=== PATIENT | male | born 1940 | race Caucasian/White ===

== ENCOUNTER 2018-12-06 18:22 | Observation (INO) ==
[2018-12-06 19:18] LABS: Albumin Level 3.9 gm/dL (3.4-5.0); Albumin/Globulin Ratio 1.2 (1.1-1.8); Anion Gap 11.1 mEq/L (5-15); Bilirubin,Total 0.9 mg/dL (0.2-1.0); Calcium 8.6 mg/dL (8.5-10.1); Globulin 3.3 gm/dl (1.3-3.2); Total Protein,Serum 7.2 gm/dL (6.4-8.2)
--- NOTE | 2018-12-06 19:18 | Emergency Department Note ---
ED Disposition Clinical Impression: Elevated troponin Disposition: Admitted as Observation Condition on Discharge: Fair Referrals: Lacy Brooks MD [Primary Care Provider] - Time of Disposition: 20:15 - Critical Care Critical Care Time: No Attestation: On 12/06/18, the high probability of a clinically significant, sudden or life threatening deterioration of the following system(s) required my full and direct attention, intervention and personal management. The time I documented below is in addition to time spent performing reported procedures but includes the follow ing listed in this critical care notation. Medical Decision Making - Medical Records Medical records reviewed: Yes: I reviewed the patient's medical records. - Efrain Inquiry Pt receiving controlled substance: No Efrain was queried for this patient: No Vital Signs: 12/06/18 18:31 Temperature 98 F Temperature Source Oral Pulse Rate [Right Apical] 70 Respiratory Rate 18 Blood Pressure [Right Arm] 199/102 H Blood Pressure Mean [Right Arm] 134 02 Sat by Pulse Oximetry 97 Oxygen Delivery Method Room Air - Lab Data Lab results reviewed: Yes: I reviewed the patient's lab results. Lab Results 12/06/18 18:35: WBC 4.8, RBC 4.05 L, Hgb 11.2 L, Hct 36.1 L, MCV 89.2, MCH 27.6, MCHC 31.0 L, RDW 16.3, Plt Count 137 L, MPV 12.0 H, Neut % (Auto) 71.3, Lymph % (Auto) 20.2, [place] % (Auto) 7.0, Eos % (Auto) 1.1, Baso % (Auto) 0.3, Neut # (Auto) 3.5, Lymph # (Auto) 1.0, [place] # (Auto) 0.3, Eos # (Auto) 0.1, Baso # (Auto) 0.0 12/06/18 18:35: Sodium 139, Potassium 4.1, Chloride 105, Carbon Dioxide 27, Anion Gap 11.1, BUN 28 H, Creatinine 1.59 H, Estimated Creat Clear 40, Estimated GFR 42 L, Est GFR ( Amer) 51 L, Glucose 145 H, Calcium 8.6, Total Bili del castillo 0.9, AST 40 H, ALT 51, Alkaline Phosphatase 82, Troponin I 0.94 H, Total Protein 7.2, Albumin 3.9, Globulin 3.3 H, Albumin/Globulin Ratio 1.2 12/06/18 18:35: Lactate 0.8 12/06/18 18:35: C-Reactive Protein 1.0 H 12/06/18 18:40: POC Glucose 134 H Result diagrams: 12/06/18 18:35 12/06/18 18:35 Orders (Tests/Meds): ED MEDICATIONS Discontinued Medications Generic Name Dose Route Start Last Admin Trade Name Freq PRN Reason Stop Dose Admin Methylprednisolone Sodium Succinate 125 mg 12/06/18 18:57 12/06/18 19:11 Solu-Medrol 125mg/2ml Vial IV 12/06/18 18:58 125 mg ONCE ONE Administration ORDERS Category Date Time Status CT head/brain wo con Stat Cat Scan 12/06/18 19:[address] lumbar spine wo con Stat Cat Scan 12/06/18 18:56 Ordered Chest XR 2 view (NOT portable) [XR chest 2V] Stat Exams 12/06/18 19:22 Taken Erythrocyte Sedimentation Rate Stat Lab 12/06/18 18:35 Received Urinalysis and Microscopic Stat Lab 12/06/18 18:36 Ordered Blood Culture Stat Micro 12/06/18 18:35 Received EKG Request [ECG Request by /Nse] Stat Y 12/06/18 19:20 Ordered - Physician Consults Physician Consulted: eileen Time: 20:13 Reason -: Admission, Cardiology Eval/Care Additional Consult: kelly Reason -: Admission General Adult HPI - General Chief complaint: Weakness Stated complaint: Weakness in legs Time Seen by Provider: 12/06/18 18:45 Mode of Arrival: Ambulatory Limitations: No Limitations Description of Symptoms (Recalled from ER Triage Doc. by RN): PT C/O WEAKNESS IN LEGS. 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 PT STATES THAT HE NEVER FELL BUT WOULD HAVE TO CROUCH DOWN SO HE WOULDNT FALL. PT STATES HE HASNT TAKEN ANY OF HIS MEDS TODAY BECAUSE HE FORGOT. 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 No chest pain, headache, or affected other extremities - Related Data Home Medications Medication Instructions Recorded Confirmed Linaclotide [Linzess] 72 mcg PO DAILY 10/11/18 12/06/18 Lisinopril [Lisinopril 2.5mg Tab] 5 mg PO DAILY 10/11/18 12/06/18 glipiZIDE [Glipizide] 5 mg PO DAILY 10/11/18 12/06/18 Allergies Allergy/AdvReac Type Severity Reaction Status Date / Time shellfish derived Allergy Severe UNKOWN Verified 10/16/18 09:28 [From SHELLFISH (FOOD/DRUG)] iodine Allergy Unknown Verified 10/16/18 09:28 [facility] History - Hepatitis A Screen Drug use history?: No High risk sexual behaviors?: No History of sexually transmitted infection?: No Currently employed?: No Childcare worker?: No Do you have indoor plumbing?: Yes Do you have electricity?: Yes Attestation statement:: This patient has been screened for Hepatitis A risk factors. I have reviewed the patient's past medical history: Yes Medical History: Reports:: Diabetes Mellitus Type 2, Hypertension Denies:: Diabetes Mellitus Type 1, Internal Pacemaker, Lung Disease, Seizures Other Medical History: Reports: Other. Denies: Blood Transfusion Reaction Other Surgeries: No: Pacemaker - Social History Smoking Status: Smoker, status unknown Alcohol Intake: never Alcohol Intake Frequency:: other Substance Use Type: other Occupational Status: other Family Hx:: Unable to obtain ROS Obtained: Yes All systems reviewed & no additional complaints - Constitutional Constitutional: Denies fever(s) - Eyes Eyes: Denies change in vision - Cardiovascular Cardiovascular: Denies chest pain, Denies chest pain at rest, Denies diaphoresis, Denies dyspnea - Respiratory Respiratory: No chest congestion, No cough - Gastrointestinal Gastrointestingal: Reports: system reviewed and no additional complaints, except as docu. Denies: abdominal pain, belching, diarrhea - Musculoskeletal Musculoskeletal: Denies joint pain, Denies joint stiffness, Denies joint swelling, Reports muscle weakness - Neurologic Neurologic: Denies dizziness, Reports focal weakness, Denies syncope, Reports weakness, Reports other (legs) - Hematologic/Lymphatic Henatologic/Lymphatic: Reports system reviewed and no additional complaints, except as docu, Denies easy bleeding, Denies easy bruising Physical Exam - General General appearance: alert, in no apparent distress - Head Head exam: atraumatic, normocephalic, normal inspection - Eye Eye exam: Present: normal appearance, PERRL, EOMI - ENT ENT exam: Present: normal exam, normal oropharynx, mucous membranes moist, TM's normal bilaterally, normal external ear exam - Neck Neck exam: Present: normal inspection, full ROM, trachea midline. Absent: meni ngismus, lymphadenopathy - Chest Chest inspection: Present: normal inspection, symmetric chest wall rise. Absent: tenderness - Respiratory Respiratory exam: Present: normal lung sounds bilaterally. Absent: respiratory distress - Cardiovascular Cardiovascular exam: Present: normal rhythm, irregular rhythm. Absent: JVD - Abdominal Exam Abdominal exam: Present: soft, normal bowel sounds. Absent: distention, tenderness, guarding - Extremities Exam Extremities exam: Present: normal inspection, full ROM, normal capillary refill. Absent: calf tenderness - Neurological Exam Neurological exam: Present: alert, oriented X3, normal gait - Psychiatric Psychiatric exam: Present: normal affect, normal mood - Skin Skin exam: Present: warm, dry, intact, normal color
[2018-12-06 19:30] LABS: Hematocrit 36.1 % (42.0-52.0); Hemoglobin 11.2 g/dL (14.1-18.0); Mean Corpuscular Volume 89.2 fl (80-94); Red Blood Count 4.05 M/mm3 (4.60-6.20); White Blood Count 4.8 K/mm3 (4.8-10.8)
[2018-12-06 19:31] LABS: Basophils % 0.3 % (0.1-2.0); Eosinophils % 1.1 % (0.1-12.0); Lymphocytes % 20.2 % (10-50); Monocytes # 0.3 K/mm3 (0.1-1.0); Neutrophils # 3.5 K/mm3 (1.8-7.8); Neutrophils % 71.3 % (37.0-80.0); Platelet Count 137 K/mm3 (142-424); Red Cell Distribution Width 16.3 % (11.5-17.5)
[2018-12-06 19:32] LABS: Eosinophils # 0.1 K/mm3 (0.0-0.4)
[2018-12-07 06:46] LABS: Eosinophils % 0.3 % (0.1-12.0); Hematocrit 35.3 % (42.0-52.0); Hemoglobin 11.2 g/dL (14.1-18.0); Lymphocytes # 0.5 K/mm3 (0.7-4.5); Lymphocytes % 10.9 % (10-50); Mean Corpuscular HGB Conc 31.8 g/dL (31.8-35.4); Mean Corpuscular Volume 88.2 fl (80-94); Mean Platelet Volume 11.7 fl (7.4-10.4); Monocytes # 0.1 K/mm3 (0.1-1.0); Monocytes % 1.1 % (1.7-9.3); Neutrophils # 3.8 K/mm3 (1.8-7.8); Neutrophils % 87.7 % (37.0-80.0); Platelet Count 155 K/mm3 (142-424); Red Cell Distribution Width 16.3 % (11.5-17.5); White Blood Count 4.4 K/mm3 (4.8-10.8)
[2018-12-07 07:25] LABS: Albumin Level 3.4 gm/dL (3.4-5.0); Albumin/Globulin Ratio 1.1 (1.1-1.8); Anion Gap 13.1 mEq/L (5-15); Calcium 8.4 mg/dL (8.5-10.1); Globulin 3.1 gm/dl (1.3-3.2); Total Protein,Serum 6.5 gm/dL (6.4-8.2)
--- NOTE | 2018-12-07 07:48 | Pharmacy Consult Notes ---
[facility] Pharmacy VTE Monitoring - Patient Demographics Admission date: 12/07/18 Report Date: 12/07/18 Time: 07:48 Allergies/Adverse Reactions: Patient Allergies shellfish derived [From SHELLFISH (FOOD/DRUG)] Allergy (Severe, Verified 10/16/18 09:28) UNKOWN iodine Allergy (Unknown, Verified 10/16/18 09:28) Height: 1.75 m Weight: 74.191 kg Patient Problems: Current Active Problems Elevated troponin (Acute) - VTE Risk Labs: VTE Related Lab Results Hgb 11.2 g/dL (14.1-18.0) L 12/07/18 06:31 Hct 35.3 % (42.0-52.0) L 12/07/18 06:31 Plt Count 155 K/mm3 (142-424) 12/07/18 06:31 BUN 28 mg/dL (7-18) H 12/07/18 06:31 Creatinine 1.42 mg/dL (0.70-1.30) H 12/07/18 06:31 Estimated Creat Clear 46 mL/min (50-200) 12/07/18 06:31 Was VTE Risk Assessment Performed: Yes VTE Score: 1 VTE Risk Level: Very Low Risk Clinical Trial Participant: No - Prophylaxis VTE Prophylaxis Ordered?: Yes Types of VTE Prophylaxis: TEDS Knee High
--- NOTE | 2018-12-07 08:18 | Consult Report ---
History of Present Illness Consult date: 12/07/18 Requesting physician: Lacy Brooks Chief complaint: near syncope, elevated troponin Additional Medical History:: 1. HTN 2. DM, Type 2, treated for years 3. A. fib with CVR, History of present illness: 78-year-old white male with history of hypertension and type 2 diabetes mellitus presented to the emergency department for evaluation of recurrent weakness. Patient denies chest pain, pressure or tightness relates 3 episodes of leg weakness to the point that he will fall to the ground without loss of consciousness. He states he is able to catch himself and within a couple of min utes is able to stand back up with no problems. 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 Work-up in the ER revealed elevated troponin and abnormal EKG showing atrial fibrillation with voltage criteria for LVH, inferior infarct and poor R wave progression anteriorly with ST segment abnormalities laterally suggestive of ischemia. This is unchanged from EKG from 2017. Patient's blood pressure was markedly elevated on admission which has improved with additional antihypertensive medication in the form of Norvasc and metoprolol. [facility] History Medical History: Reports:: Diabetes Mellitus Type 2, Hypertension Denies:: Cancer, Diabetes Mellitus Type 1, Internal Pacemaker, Lung Disease, MRSA, Seizures *Have you ever received a pneumonia vaccine?: No *Have you received a flu vaccine this season?: No Other Medical History: Reports: Other. Denies: Blood Transfusion Reaction Other Surgeries: Yes: Colonoscopy. No: Pacemaker Amputation: No - *Social History Educational Level: Attended Grade School Smoking Status: Smoker, status unknown Alcohol Intake: never Alcohol Intake Frequency:: other Substance Use Type: other *Occupational Status:: other *Travel in the last 8 weeks: None - Psychiatric History Expresses thoughts of harming self/others: None Suicide Plan Description: No Plan Family Hx:: Unable to obtain Meds Home Medications Medication Instructions Recorded Confirmed Type Linaclotide [Linzess] 72 mcg PO DAILY 10/11/18 12/06/18 History Lisinopril [Lisinopril 2.5mg Tab] 5 mg PO DAILY 10/11/18 12/06/18 History glipiZIDE [Glipizide] 5 mg PO DAILY 10/11/18 12/06/18 History Allergies Allergy/AdvReac Type Severity Reaction Status Date / Time shellfish derived Allergy Severe UNKOWN Verified 10/16/18 09:28 [From SHELLFISH (FOOD/DRUG)] iodine Allergy Unknown Verified 10/16/18 09:28 Review of Systems - *Cardiovascular Denies chest pain, Denies rapid, pounding, or irregular heartbeat - *Respiratory Denies cough, Denies shortness of breath, Denies shortness of breath with activity - *Gastrointestinal Reports constipation, Denies abdominal pain - *Genitourinary Denies blood in urine - *Musculoskeletal Denies joint pain, Denies back pain - *Neurologic Reports localized weakness, Reports weakness, Reports other (legs), Denies dizziness, Denies fainting Exam Vital signs and Labs for Last 24 Hours: Temp Pulse Resp BP Pulse Ox 98.9 F 67 17 169/90 H 96 12/07/18 04:00 12/07/18 04:00 12/07/18 04:00 12/07/18 04:00 12/07/18 04:00 Laboratory Results - last 24 hr 12/06/18 18:35: WBC 4.8, RBC 4.05 L, Hgb 11.2 L, Hct 36.1 L, MCV 89.2, MCH 27.6, MCHC 31.0 L, RDW 16.3, Plt Count 137 L, MPV 12.0 H, Neut % (Auto) 71.3, Lymph % (Auto) 20.2, [place] % (Auto) 7.0, Eos % (Auto) 1.1, Baso % (Auto) 0.3, Neut # (Auto) 3.5, Lymph # (Auto) 1.0, [place] # (Auto) 0.3, Eos # (Auto) 0.1, Baso # (Auto) 0.0 12/06/18 18:35: Sodium 139, Potassium 4.1, Chloride 105, Carbon Dioxide 27, Anion Gap 11.1, BUN 28 H, Creatinine 1.59 H, Estimated Creat Clear 40, Estimated GFR 42 L, Est GFR ( Amer) 51 L, Glucose 145 H, Calcium 8.6, Total Bilirubin 0.9, AST 40 H, ALT 51, Alkaline Phosphatase 82, Troponin I 0.94 H, Total Protein 7.2, Albumin 3.9, Globulin 3.3 H, Albumin/Globulin Ratio 1.2 12/06/18 18:35: Lactate 0.8 12/06/18 18:35: ESR 26 H 12/06/18 18:35: C-Reactive Protein 1.0 H 12/06/18 18:40: POC Glucose 134 H 12/06/18 22:09: POC Glucose 171 H 12/06/18 23:24: Troponin I 0.84 H 12/07/18 02:15: Troponin I 0.74 H 12/07/18 05:42: POC Glucose 193 H 12/07/18 06:31: WBC 4.4 L, RBC 4.00 L, Hgb 11.2 L, Hct 35.3 L, MCV 88.2, MCH 28.1, MCHC 31.8, RDW 16.3, Plt Count 155, MPV 11.7 H, Neut % (Auto) 87.7 H, Lymph % (Auto) 10.9, [place] % (Auto) 1.1 L, Eos % (Auto) 0.3, Baso % (Auto) 0.0 L, Neut # (Auto) 3.8, Lymph # (Auto) 0.5 L, [place] # (Auto) 0.1, Eos # (Auto) 0.0, Baso # (Auto) 0.0 12/07/18 06:31: Sodium 143, Potassium 4.1, Chloride 109 H, Carbon Dioxide 25, Anion Gap 13.1, BUN 28 H, Creatinine 1.42 H, Estimated Creat Clear 46, Estimated GFR 48 L, Est GFR ( Amer) 58 L, Glucose 197 H D, Calcium 8.4 L, Total Bilirubin 1.0, AST 32, ALT 46, Alkaline Phosphatase 75, Total Protein 6.5, Albumin 3.4 D, Globulin 3.1, Albumin/Globulin Ratio 1.1 I & O for Last 24 hours: Intake & Output 12/04/18 12/05/18 12/06/18 12/07/18 11:59 11:59 11:59 11:59 Intake Total 738 / 738 Output Total 200 / 200 Balance 538 / 538 Weight 163 lb 9 oz - *Routine HEENT Exam Head: Present: normocephalic Eye: Present: EOMI, PERRL ENT: Present: mucous membranes moist - *Routine Neck Exam Present: supple. Absent: JVD, carotid bruit - *Routine Respiratory Exam Present: CTA bilaterally. Absent: accessory muscle use, rales, rhonchi, wheezes - *Routine Cardiovascular Exam Present: irregularly irregular. Absent: murmur, gallop, rubs - *Routine Abdominal Exam Present: soft. Absent: tenderness, distended, guarding - *Routine Extremities Exam Absent: edema, calf tenderness - *Routine Neurological Exam Present: alert, oriented X3, moving all extremities Assessment and Plan (1) Elevated troponin Current visit: Yes Status: Acute Category: Medical Code(s): R74.8 - Abnormal levels of other serum enzymes (2) Abnormal EKG Current visit: Yes Status: Acute Category: Medical Code(s): R94.31 - Abnormal electrocardiogram [ECG] [EKG] (3) Hypertension Current visit: Yes Status: Acute Category: Medical Code(s): I10 - Essential (primary) hypertension (4) Diabetes mellitus type 2 in nonobese Current visit: Yes Status: Acute Category: Medical Code(s): E11.9 - Type 2 diabetes mellitus without complications (5) Atrial fibrillation Current visit: Yes Status: Acute Category: Medical Code(s): I48.91 - Unspecified atrial fibrillation - Assessment and plan all Dx Assessment and Plan for all problems:: 1. Near syncopal episode in a diabetic, hypertensive patient with abnormal EKG and elevated troponins with concern for non-ST elevation TN. Discussed recommendation for left heart catheterization with the patient. He would like to discuss it with Dr. Brooks first. In the interim we will obtain an echo cardiogram to evaluate left ventricular size and function. 2. Would recommend daily aspirin 81 mg daily 3. With atrial fibrillation patient's elevated chads score, chronic anticoagulation will be recommended as well. Would hold off on starting this until decision regarding cardiac catheterization is made. 4. Further recommendations to follow pending above results.
--- NOTE | 2018-12-07 09:02 | History & Physical Report ---
*Admission Date: 12/07/18 *Chief complaint: leg weakness *History of present illness: Mr. Field is a 78-year-old white male with history of hypertension and type 2 diabetes mellitus who presented to the emergency department for evaluation of recurrent weakness. Patient denies chest pain, pressure or tightness and relates 3 episodes of leg weakness to the point that he will fall to the ground without loss of consciousness. He states he is able to catch himself and within a couple of minutes is able to stand back up with no problems. 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 Work-up in the ER revealed an elevated troponin and abnormal EKG showing atrial fibrillation with voltage criteria for LVH, inferior infarct and poor R wave progression anteriorly with ST segment abnormalities laterally suggestive of ischemia. This is unchanged from EKG from 2017. Patient's blood pressure was markedly elevated on admission which has improved with additional antihypertensive medication in the form of Norvasc and metoprolol. (The above as per Nathaniel Cabrera) [facility] History I have reviewed the patient's past medical history: Yes Medical History: Reports:: Atrial Fibrillation, Diabetes Mellitus Type 2, Hypertension Denies:: Cancer, Diabetes Mellitus Type 1, Internal Pacemaker, Lung Disease, MRSA, Seizures *Have you ever received a pneumonia vaccine?: No *Have you received a flu vaccine this season?: No Other Medical History: Reports: Other (gout). Denies: Blood Transfusion Reaction Other Surgeries: Yes: Colonoscopy. No: Pacemaker Amputation: No - *Social History Educational Level: Attended Grade School Smoking Status: Smoker, status unknown Alcohol Intake: never Alcohol Intake Frequency:: other Substance Use Type: other *Occupational Status:: other *Travel in the last 8 weeks: None - Psychiatric History Expresses thoughts of harming self/others: None Suicide Plan Description: No Plan Family Hx:: Unable to obtain Review of Systems - Constitutional Reports weakness (legs), Denies chills, Denies fatigue - Eyes Denies blurry vision, Denies double vision - ENT Denies nasal congestion, Denies sore throat - *Cardiovascular Denies chest pain, Denies shortness of breath, Denies leg swelling - *Respiratory Denies cough, Denies shortness of breath - *Gastrointestinal Reports constipation, Denies abdominal pain, Denies loose stools, Denies nausea, Denies vomiting - *Genitourinary Denies difficulty urinating, Denies painful urination - *Musculoskeletal Denies joint pain - *Neurologic Reports localized weakness, Reports weakness, Reports other (legs), Denies dizziness, Denies fainting Meds Home Medications Medication Instructions Recorded Confirmed Type Linaclotide [Linzess] 72 mcg PO DAILY 10/11/18 12/06/18 History Lisinopril [Lisinopril 2.5mg Tab] 5 mg PO DAILY 10/11/18 12/06/18 History Ferrous Gluconate [Ferate] 240 mg PO TID 12/07/18 12/07/18 History Levothyroxine Sodium 50 mcg PO DAILY 12/07/18 12/07/18 History [Levothyroxine 50mcg (0.05mg) Tab] Linaclotide [Linzess] 72 mcg PO DAILY 12/07/18 12/07/18 History glyBURIDE [Diabeta 5mg tablet] 5 mg PO DAILY 12/07/18 12/07/18 History Allergies Allergy/AdvReac Type Severity Reaction Status Date / Time shellfish derived Allergy Severe UNKOWN Verified 10/16/18 09:28 [From SHELLFISH (FOOD/DRUG)] iodine Allergy Unknown Verified 10/16/18 09:28 Exam Vital signs and Labs for Last 24 Hours: Temp Pulse Resp BP Pulse Ox 98.1 F 64 18 145/94 H 95 12/07/18 08:00 12/07/18 08:00 12/07/18 08:00 12/07/18 08:00 12/07/18 08:00 Laboratory Results - last 24 hr 12/06/18 18:35: WBC 4.8, RBC 4.05 L, Hgb 11.2 L, Hct 36.1 L, MCV 89.2, MCH 27.6, MCHC 31.0 L, RDW 16.3, Plt Count 137 L, MPV 12.0 H, Neut % (Auto) 71.3, Lymph % (Auto) 20.2, [place] % (Auto) 7.0, Eos % (Auto) 1.1, Baso % (Auto) 0.3, Neut # (Auto) 3.5, Lymph # (Auto) 1.0, [place] # (Auto) 0.3, Eos # (Auto) 0.1, Baso # (Auto) 0.0 12/06/18 18:35: Sodium 139, Potassium 4.1, Chloride 105, Carbon Dioxide 27, Anion Gap 11.1, BUN 28 H, Creatinine 1.59 H, Estimated Creat Clear 40, Estimated GFR 42 L, Est GFR ( Amer) 51 L, Glucose 145 H, Calcium 8.6, Total Bilirubin 0.9, AST 40 H, ALT 51, Alkaline Phosphatase 82, Troponin I 0.94 H, Total Protein 7.2, Albumin 3.9, Globulin 3.3 H, Albumin/Globulin Ratio 1.2 12/06/18 18:35: Lactate 0.8 12/06/18 18:35: ESR 26 H 12/06/18 18:35: C-Reactive Protein 1.0 H 12/06/18 18:40: POC Glucose 134 H 12/06/18 22:09: POC Glucose 171 H 12/06/18 23:24: Troponin I 0.84 H 12/07/18 02:15: Troponin I 0.74 H 12/07/18 05:42: POC Glucose 193 H 12/07/18 06:31: WBC 4.4 L, RBC 4.00 L, Hgb 11.2 L, Hct 35.3 L, MCV 88.2, MCH 28.1, MCHC 31.8, RDW 16.3, Plt Count 155, MPV 11.7 H, Neut % (Auto) 87.7 H, L ymph % (Auto) 10.9, [place] % (Auto) 1.1 L, Eos % (Auto) 0.3, Baso % (Auto) 0.0 L, Neut # (Auto) 3.8, Lymph # (Auto) 0.5 L, [place] # (Auto) 0.1, Eos # (Auto) 0.0, Baso # (Auto) 0.0 12/07/18 06:31: Sodium 143, Potassium 4.1, Chloride 109 H, Carbon Dioxide 25, Anion Gap 13.1, BUN 28 H, Creatinine 1.42 H, Estimated Creat Clear 46, Estimated GFR 48 L, Est GFR ( Amer) 58 L, Glucose 197 H D, Calcium 8.4 L, Total Bilirubin 1.0, AST 32, ALT 46, Alkaline Phosphatase 75, Total Protein 6.5, Albumin 3.4 D, Globulin 3.1, Albumin/Globulin Ratio 1.1 I & O for Last 24 hours: Intake & Output 12/04/18 12/05/18 12/06/18 12/07/18 11:59 11:59 11:59 11:59 Intake Total 738 / 738 Output Total 200 / 200 Balance 538 / 538 Weight 163 lb 9 oz - Constitutional no acute distress - *Routine HEENT Exam Head: Present: normocephalic Eye: Present: EOMI, PERRL ENT: Present: mucous membranes moist - *Routine Neck Exam Present: supple. Absent: lymphadenopathy - *Routine Respiratory Exam Present: CTA bilaterally - *Routine Cardiovascular Exam Present: irregularly irregular - *Routine Abdominal Exam Present: soft, normoactive bowel sounds. Absent: tenderness - *Routine Extremities Exam Absent: cyanosis, clubbing, edema - *Routine Skin Exam Present: warm. Absent: rash - *Routine Neurological Exam Present: alert, oriented X3 H&P: Result - Impressions Head CT - nothing acute Lumbar Spine CT 1. No acute fracture. 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 L3-L4: Anterior bridging osteophyte. Concentric bulging disc along with facet and ligamentum hypertrophy with mild bilateral foraminal narrowing with borderline narrowing of the canal. 4. L4-L5: Concentric bulging disc along with moderate facet and ligamentum flavum hypertrophy with canal stenosis. There is a broad-based right paracentral annular protrusion with moderate right and mild left foraminal narrowing. 5. L5-S1: Concentric bulging disc with a small left paracentral disc protrusion along with moderate facet ligamentum flavum hypertrophy with mild bilateral foraminal narrowing CXR - CHF with interstitial edema Assessment and Plan (1) Elevated troponin Current visit: Yes Status: Acute Category: Medical Code(s): R74.8 - Abnormal levels of other serum enzymes (2) Abnormal EKG Current visit: Yes Status: Acute Category: Medical Code(s): R94.31 - Abnormal electrocardiogram [ECG] [EKG] (3) Hypertension Current visit: Yes Status: Chronic Category: Medical Code(s): I10 - Essential (primary) hypertension (4) Diabetes mellitus type 2 in nonobese Current visit: Yes Status: Chronic Category: Medical Code(s): E11.9 - Type 2 diabetes mellitus without complications (5) Atrial fibrillation Current visit: Yes Status: Chronic Category: Medical Code(s): I48.91 - Unspecified atrial fibrillation (6) Leg weakness Current visit: Yes Status: Acute Category: Medical Code(s): R29.898 - Other symptoms and signs involving the musculoskeletal system (7) Renal insufficiency Current visit: Yes Status: Acute Category: Medical Code(s): N28.9 - Disorder of kidney and ureter, unspecified - Assessment and plan all Dx Assessment and Plan for all problems:: We will get an FATUMA and acetylcholinesterase antibodies due to leg weakness. Cardiology has seen the patient and has ordered an echo.
[2018-12-07 10:05] LABS: Lymphocytes % 12 % (10-50); Neutrophils % 88 % (42-76); Total Cells Counted 100
[2018-12-07 10:27] LABS: RBC Morphology Normal
--- NOTE | 2018-12-07 10:32 | Cardiology Report ---
PROCEDURE: 2-D M-mode and color Doppler study INDICATIONS FOR THE TEST: Chest pain COPD Heart Murmur Tobacco Smoking Palpitations Fatigue Syncope Edema Hypertension+Diabetes Mellitus+ Rheumatic Fever SOB JARRETT Obesity Hyperlipidemia Family History HD Additional History Weakness, AFib PATIENT INFORMATION HEIGHT: 69 WEIGHT: 163 GENDER: Male B/P: 199/102 2-D/M-MODE INTERPRETATION: 2-D MEASUREMENTS OBSERVED VALUES IN CMS Right Ventricular Dimension (RVDd) 3.1 Interventricular Septum (Thickness)(IVsd) 1.4 Left Ventricular Internal Dimensions(LVIDd) 5.6 Left Ventricular Posterior Wall (Thickness)(LVPWd) 1.3 Aortic Root 4.0 Aortic Cusp Separation 2.9 Left Atrial Dimensions (LAD) 5.0 2D 1. Left atrium is moderately enlarged, left ventricle is normal size, there is mild concentric left ventricular hypertrophy, visually estimated ejection fraction 40-45%, left ventricle is globally hypokinetic. 2. The right atrium and right ventricle are mildly enlarged with normal contractility. 3. The aortic valve is thickened and calcified leaflet continue to display mobility. 4. The mitral and tricuspid valve leaflets are minimally thickened. 5. The pulmonic valve is poorly visualized. 6. No significant pericardial effusion noted. DOPPLER INTERROGATION: Doppler interrogation of the aortic, mitral and tricuspid valvular presence of moderate aortic, moderate mitral and tricuspid regurgitation, calculated right ventricular systolic pressure is 54 mmHg consistent with moderate pulmonary hypertension, diastolic parameters are inconclusive, inferior vena cava is mildly dilated without significant inspiratory collapse. CONCLUSION: 1. Biatrial enlargement, normal left ventricular size, mild concentric left ventricular hypertrophy, reduced left ventricular systolic function, visually estimated ejection fraction 40-45%, left ventricle is globally hypokinetic, diastolic parameters are inconclusive. 2. Mildly enlarged right ventricle with normal contractility. 3. Moderate mitral, aortic and tricuspid regurgitation, calculated right ventricular systolic pressure is 54 mmHg consistent with moderate pulmonary hypertension, inferior vena cava is mildly dilated without significant inspiratory collapse. 4. No significant pericardial effusion noted.
[2018-12-07 20:19] LABS: Microscopic, Urine URINE MICROSCOPIC (MICROSCOPIC)
[2018-12-07 20:26] LABS: Appearance,Urine CLEAR (Clear); Bilirubin,Urine Negative (Negative); Blood, Urine Negative (Negative); Color,Urine YELLOW (Yellow); Glucose,Urine (UA) Negative (Negative); Ketones,Urine Negative (Negative); Leukocyte Esterase,Urine Negative (Negative); Protein,Urine Negative (Negative); Urobilinogen,Urine 0.2 EU/dl (0.2)
[2018-12-07 20:38] LABS: Bacteria,Urine Trace /lpf
--- NOTE | 2018-12-08 08:11 | Progress Note ---
Subjective Date: 12/08/18 Time: 08:06 Principal diagnosis: weakness Interval history: 78-year-old white male at bedside eating breakfast in no acute distress. Patient denies any chest pain, pressure or tightness. No recurrent leg weakness overnight. Telemetry shows atrial fibrillation with intermittent bradycardia down into the 40 bpm range during hours of sleep. No prolonged pauses and no tacky arrhythmias noted. Brief discussion regarding results of echocardiogram was undertaken with the patient that he would prefer to discuss results and further treatment with Dr. Brooks. Exam Vital signs and Labs for Last 24 Hours: Temp Pulse Resp BP Pulse Ox 97.6 F 56 L 18 159/88 H 96 12/08/18 04:00 12/08/18 04:00 12/08/18 04:00 12/08/18 04:00 12/08/18 04:00 Laboratory Results - last 24 hr 12/07/18 06:31: Total Counted 100, Neutrophils % (Manual) 88 H, Lymphocytes % (Manual) 12, Platelet Estimate Normal, RBC Morphology Normal 12/07/18 11:06: POC Glucose 157 H 12/07/18 17:59: POC Glucose 212 H 12/07/18 20:00: Urine Color Yellow, Urine Appearance Clear, Urine pH 6.0, Ur Specific [place] 1.020, Urine Protein Negative, Urine Glucose (UA) Negative, Urine Ketones Negative, Urine Blood Negative, Urine Nitrate Negative, Urine Bilirubin Negative, Urine Urobilinogen 0.2, Ur Leukocyte Esterase Negative, Urine WBC 3-5, Ur Squamous Epith Cells 3-5, Urine Bacteria Trace, Hyaline Casts 3-5 12/07/18 21:27: POC Glucose 155 H 12/08/18 06:24: POC Glucose 122 H I & O for Last 24 hours: Intake & Output 12/05/18 12/06/18 12/07/18 12/08/18 11:59 11:59 11:59 11:59 Intake Total 738 / 738 676 / 676 Output Total 450 / 450 750 / 750 Balance 288 / 288 -74 / -74 Weight 163 lb 9 oz 162 lb 11.218 oz - *Routine HEENT Exam Head: Present: normocephalic Eye: Present: EOMI, PERRL ENT: Present: mucous membranes moist - *Routine Respiratory Exam Present: CTA bilaterally. Absent: accessory muscle use, rales, rhonchi, wheezes - *Routine Cardiovascular Exam Present: irregularly irregular. Absent: murmur, gallop, rubs - *Routine Extremities Exam Absent: edema, calf tenderness - *Routine Neurological Exam Present: alert, oriented X3, moving all extremities Progress Note: A&P (1) Elevated troponin Status: Acute Current Visit: Yes (2) Abnormal EKG Status: Acute Current Visit: Yes (3) Hypertension Status: Chronic Current Visit: Yes (4) Diabetes mellitus type 2 in nonobese Status: Chronic Current Visit: Yes (5) Atrial fibrillation Status: Chronic Current Visit: Yes (6) Cardiomyopathy Status: Acute Current Visit: Yes Assessment and Plan for All Diagnoses:: 1. Elevated troponins with mild cardiomyopathy and abnormal EKG. Patient denies any chest pain, pressure or tightness. Discussed recommendation for cardiac catheterization with patient who wishes to discuss with Dr. Brooks before proceeding with any further evaluation. Would recommend medication changes including discontinuation of Norvasc due to the patient's cardiomyopathy and increasing his GABBY inhibitor with close monitoring of his renal function. Patient would be unable to tolerate beta-josemanuel therapy at this time due to intermittent marked bradycardia. 2. With mild CHF noted on chest x-ray, evidence of pulmonary HTN, mitral regurgitation on echo and mild cough, would recommend intermittent diuretic therapy in the form of low-dose Lasix. 3. Chronic atrial fibrillation on anticoagulation therapy. Currently rate controlled with intermittent bradycardia noted on telemetry. Patient will likely need pacemaker in the future, but not currently indicated clinically. 4. Recommendations as noted above, will be available as needed for further evaluation.
--- NOTE | 2018-12-08 08:14 | Progress Note ---
Internal Medicine - PN: Subj *Date: 12/08/18 *Time: 09:02 Interval history: Patient states he is feeling well this morning. He denies any chest pain or shortness of breath. He denies any leg weakness. He states he did rest well last night. Exam Vital signs and Labs for Last 24 Hours: Temp Pulse Resp BP Pulse Ox 97.6 F 56 L 18 159/88 H 96 12/08/18 04:00 12/08/18 04:00 12/08/18 04:00 12/08/18 04:00 12/08/18 04:00 Laboratory Results - last 24 hr 12/07/18 06:31: Total Counted 100, Neutrophils % (Manual) 88 H, Lymphocytes % (Manual) 12, Platelet Estimate Normal, RBC Morphology Normal 12/07/18 11:06: POC Glucose 157 H 12/07/18 17:59: POC Glucose 212 H 12/07/18 20:00: Urine Color Yellow, Urine Appearance Clear, Urine pH 6.0, Ur Specific [place] 1.020, Urine Protein Negative, Urine Glucose (UA) Negative, Urine Ketones Negative, Urine Blood Negative, Urine Nitrate Negative, Urine Bilirubin Negative, Urine Urobilinogen 0.2, Ur Leukocyte Esterase Negative, Urine WBC 3-5, Ur Squamous Epith Cells 3-5, Urine Bacteria Trace, Hyaline Casts 3-5 12/07/18 21:27: POC Glucose 155 H 12/08/18 06:24: POC Glucose 122 H I & O for Last 24 hours: Intake & Output 12/05/18 12/06/18 12/07/18 12/08/18 11:59 11:59 11:59 11:59 Intake Total 738 / 738 676 / 676 Output Total 450 / 450 750 / 750 Balance 288 / 288 -74 / -74 Weight 163 lb 9 oz 162 lb 11.218 oz - Constitutional no acute distress - *Routine Respiratory Exam Present: CTA bilaterally - *Routine Cardiovascular Exam Present: irregularly irregular - *Routine Abdominal Exam Present: soft, normoactive bowel sounds. Absent: tenderness - *Routine Extremities Exam Absent: cyanosis, clubbing, edema - *Routine Neurological Exam Present: alert, oriented X3 Assessment and Plan (1) Elevated troponin Current visit: Yes Status: Acute Category: Medical Code(s): R74.8 - Abnormal levels of other serum enzymes (2) Abnormal EKG Current visit: Yes Status: Acute Category: Medical Code(s): R94.31 - Abnormal electrocardiogram [ECG] [EKG] (3) Hypertension Current visit: Yes Status: Chronic Category: Medical Code(s): I10 - Essential (primary) hypertension (4) Diabetes mellitus type 2 in nonobese Current visit: Yes Status: Chronic Category: Medical Code(s): E11.9 - Type 2 diabetes mellitus without complications (5) Atrial fibrillation Current visit: Yes Status: Chronic Category: Medical Code(s): I48.91 - Unspecified atrial fibrillation (6) Cardiomyopathy Current visit: Yes Status: Acute Category: Medical Code(s): I42.9 - Cardiomyopathy, unspecified (7) Leg weakness Current visit: Yes Status: Acute Category: Medical Code(s): R29.898 - Other symptoms and signs involving the musculoskeletal system (8) Spinal stenosis of lumbar region Current visit: Yes Status: Chronic Category: Medical Code(s): M48.061 - Spinal stenosis, lumbar region without neurogenic claudication - Assessment and plan all Dx Assessment and Plan for all problems:: Cardiology still recommend a heart cath. Will discuss with Dr. mendoza today.
--- NOTE | 2018-12-08 15:48 | Progress Note ---
Internal Medicine - PN: Subj *Date: 12/08/18 *Time: 15:43 Interval history: Cardiac catheterization revealed extensive CAD. Received one stent to the LAD. EF was 30-35%. Dr. Swann plans repeat cath for additional stents next week. Renal insufficiency precluded a longer intervention today. Dr. Swann is also recommending a life vest. Exam Vital signs and Labs for Last 24 Hours: Temp Pulse Resp BP Pulse Ox 97.6 F 61 20 179/93 H 99 12/08/18 11:38 12/08/18 14:10 12/08/18 14:10 12/08/18 14:10 12/08/18 14:10 Laboratory Results - last 24 hr 12/07/18 17:59: POC Glucose 212 H 12/07/18 20:00: Urine Color Yellow, Urine Appearance Clear, Urine pH 6.0, Ur Specific [place] 1.020, Urine Protein Negative, Urine Glucose (UA) Negative, Urine Ketones Negative, Urine Blood Negative, Urine Nitrate Negative, Urine Bilirubin Negative, Urine Urobilinogen 0.2, Ur Leukocyte Esterase Negative, Urine WBC 3-5, Ur Squamous Epith Cells 3-5, Urine Bacteria Trace, Hyaline Casts 3-5 12/07/18 21:27: POC Glucose 155 H 12/08/18 06:24: POC Glucose 122 H 12/08/18 13:12: Activated Clotting Time > 400 H* I & O for Last 24 hours: Intake & Output 12/06/18 12/07/18 12/08/18 12/09/18 11:59 11:59 11:59 11:59 Intake Total 738 / 738 676 / 676 Output Total 450 / 450 1250 / 1250 Balance 288 / 288 -574 / -574 Weight 163 lb 9 oz 162 lb 11.218 oz Assessment and Plan (1) Elevated troponin Current visit: Yes Status: Acute Category: Medical Code(s): R74.8 - Abnormal levels of other serum enzymes (2) Cardiomyopathy Current visit: Yes Status: Acute Category: Medical Code(s): I42.9 - Cardiomyopathy, unspecified (3) Abnormal EKG Current visit: Yes Status: Acute Category: Medical Code(s): R94.31 - Abnormal electrocardiogram [ECG] [EKG] (4) Leg weakness Current visit: Yes Status: Acute Category: Medical Code(s): R29.898 - Other symptoms and signs involving the musculoskeletal system (5) Hypertension Current visit: Yes Status: Chronic Category: Medical Code(s): I10 - Essential (primary) hypertension (6) Diabetes mellitus type 2 in nonobese Current visit: Yes Status: Chronic Category: Medical Code(s): E11.9 - Type 2 diabetes mellitus without complications (7) Atrial fibrillation Current visit: Yes Status: Chronic Category: Medical Code(s): I48.91 - Unspecified atrial fibrillation (8) Spinal stenosis of lumbar region Current visit: Yes Status: Chronic Category: Medical Code(s): M48.061 - Spinal stenosis, lumbar region without neurogenic claudication - Assessment and plan all Dx Assessment and Plan for all problems:: Likely will be hospitalized through the weekend with possible recath on Tuesday.
[2018-12-09 06:30] LABS: Eosinophils % 0.1 % (0.1-12.0); Lymphocytes # 0.4 K/mm3 (0.7-4.5); Mean Corpuscular HGB Conc 32.4 g/dL (31.8-35.4); Mean Corpuscular Volume 88.6 fl (80-94); Monocytes # 0.2 K/mm3 (0.1-1.0); Monocytes % 3.4 % (1.7-9.3); Neutrophils # 5.6 K/mm3 (1.8-7.8); Neutrophils % 89.5 % (37.0-80.0); Platelet Count 163 K/mm3 (142-424); Red Blood Count 4.17 M/mm3 (4.60-6.20); Red Cell Distribution Width 16.8 % (11.5-17.5); White Blood Count 6.2 K/mm3 (4.8-10.8)
[2018-12-09 06:50] LABS: Anion Gap 14.4 mEq/L (5-15); Calcium 8.1 mg/dL (8.5-10.1)
[2018-12-09 08:36] LABS: Lymphocytes % 6 % (10-50); Monocytes % 2 % (2-9); Neutrophils % 92 % (42-76); RBC Morphology Normal; Total Cells Counted 100
--- NOTE | 2018-12-09 14:45 | Progress Note ---
Internal Medicine - PN: Subj *Date: 12/09/18 *Time: 14:42 Interval history: So a single stent was placed in the LAD yesterday. Dr. Swann was concerned about contrast affecting his kidney function so the procedure was not prolonged. Dr. Swann plans additional cardiac catheterization and additional stenting. I would like to just keep him through the weekend in anticipation of that and for stabilizing him. His blood pressure has been running high but Entresto was started last night and he has received a dose this morning. If his blood pressure continues to run high I would favor moving to increase that dose. He actually looks generally better today. He is reluctant to wear a LifeVest. Exam Vital signs and Labs for Last 24 Hours: Temp Pulse Resp BP Pulse Ox 97.6 F 58 L 18 151/82 H 100 12/09/18 08:00 12/09/18 12:00 12/09/18 12:00 12/09/18 12:00 12/09/18 12:00 Laboratory Results - last 24 hr 12/08/18 13:12: Activated Clotting Time > 400 H* 12/08/18 18:00: POC Glucose 175 H 12/08/18 20:06: POC Glucose 271 H 12/09/18 05:45: WBC 6.2 D, RBC 4.17 L, Hgb 12.0 L, Hct 37.0 L, MCV 88.6, MCH 28.8, MCHC 32.4, RDW 16.8, Plt Count 163, MPV 11.0 H, Neut % (Auto) 89.5 H, Lymph % (Auto) 7.0 L, [place] % (Auto) 3.4, Eos % (Auto) 0.1, Baso % (Auto) 0.0 L, Neut # (Auto) 5.6, Lymph # (Auto) 0.4 L, [place] # (Auto) 0.2, Eos # (Auto) 0.0, Baso # (Auto) 0.0, Total Counted 100, Neutrophils % (Manual) 92 H, Lymphocytes % (Manual) 6 L, Monocytes % (Manual) 2, Platelet Estimate Normal, RBC Morphology Normal 12/09/18 05:45: Sodium 143, Potassium 3.4 L, Chloride 109 H, Carbon Dioxide 23, Anion Gap 14.4, BUN 34 H, Creatinine 1.47 H, Estimated Creat Clear 45, Estimated GFR 46 L, Est GFR ( Amer) 56 L, Glucose 219 H, Calcium 8.1 L 12/09/18 11:20: POC Glucose 238 H I & O for Last 24 hours: Intake & Output 12/07/18 12/08/18 12/09/18 12/10/18 11:59 11:59 11:59 11:59 Intake Total 738 / 738 676 / 676 1777 / 1777 360 / 360 Output Total 450 / 450 1250 / 1250 1000 / 1000 Balance 288 / 288 -574 / -574 777 / 777 360 / 360 Weight 163 lb 9 oz 162 lb 11.218 oz 165 lb 5.547 oz Microbiology Reports for the Last 24 Hours: Microbiology 12/06/18 18:35 Blood Blood Culture - Preliminary NO GROWTH AFTER 48 HOURS 12/06/18 18:35 Blood Blood Culture - Preliminary NO GROWTH AFTER 48 HOURS - Constitutional no acute distress - *Routine HEENT Exam Head: Present: normocephalic Eye: Present: PERRL ENT: Present: mucous membranes moist - *Routine Respiratory Exam Present: CTA bilaterally - *Routine Cardiovascular Exam Present: irregular rhythm (Controlled rate of about 60.) - *Routine Abdominal Exam Present: soft. Absent: tenderness - *Routine Extremities Exam Absent: edema Assessment and Plan (1) Elevated troponin Current visit: Yes Status: Acute Category: Medical Code(s): R74.8 - Abn ormal levels of other serum enzymes (2) Cardiomyopathy Current visit: Yes Status: Acute Category: Medical Code(s): I42.9 - Cardiomyopathy, unspecified (3) Abnormal EKG Current visit: Yes Status: Acute Category: Medical Code(s): R94.31 - Abnormal electrocardiogram [ECG] [EKG] (4) Leg weakness Current visit: Yes Status: Acute Category: Medical Code(s): R29.898 - Other symptoms and signs involving the musculoskeletal system (5) Coronary artery disease Current visit: Yes Status: Acute Category: Medical Code(s): I25.10 - Atherosclerotic heart disease of [place] coronary artery without angina pectoris (6) Hypertension Current visit: Yes Status: Chronic Category: Medical Code(s): I10 - Essential (primary) hypertension (7) Diabetes mellitus type 2 in nonobese Current visit: Yes Status: Chronic Category: Medical Code(s): E11.9 - Type 2 diabetes mellitus without complications (8) Atrial fibrillation Current visit: Yes Status: Chronic Category: Medical Code(s): I48.91 - Unspecified atrial fibrillation (9) Spinal stenosis of lumbar region Current visit: Yes Status: Chronic Category: Medical Code(s): M48.061 - Spinal stenosis, lumbar region without neurogenic claudication - Assessment and plan all Dx Assessment and Plan for all problems:: Continue present regimen. Follow blood pressures. Adjust medications accordingly. Anticipate additional cardiac cath Tuesday.
[2018-12-10 06:19] LABS: Basophils % 0.1 % (0.1-2.0); Eosinophils # 0.1 K/mm3 (0.0-0.4); Eosinophils % 0.7 % (0.1-12.0); Hematocrit 39.9 % (42.0-52.0); Hemoglobin 12.5 g/dL (14.1-18.0); Lymphocytes # 1.2 K/mm3 (0.7-4.5); Lymphocytes % 13.3 % (10-50); Mean Corpuscular HGB Conc 31.4 g/dL (31.8-35.4); Mean Platelet Volume 10.8 fl (7.4-10.4); Monocytes # 0.6 K/mm3 (0.1-1.0); Neutrophils # 7.3 K/mm3 (1.8-7.8); Neutrophils % 79.8 % (37.0-80.0); Platelet Count 179 K/mm3 (142-424); Red Blood Count 4.53 M/mm3 (4.60-6.20); Red Cell Distribution Width 16.9 % (11.5-17.5); White Blood Count 9.1 K/mm3 (4.8-10.8)
[2018-12-10 06:52] LABS: Anion Gap 12.1 mEq/L (5-15); Calcium 8.2 mg/dL (8.5-10.1)
--- NOTE | 2018-12-10 13:04 | Progress Note ---
Internal Medicine - PN: Subj *Date: 12/10/18 *Time: 13:01 Interval history: He is doing okay. He is up walking the halls with assistance. His main complaint is his bowels. His gave him a suppository last night and he had some bowel movement. He remains in atrial fib. Cardiac cath is planned by Dr. Swann tomorrow morning. Exam Vital signs and Labs for Last 24 Hours: Temp Pulse Resp BP Pulse Ox 98.1 F 57 L 17 167/89 H 100 12/10/18 08:00 12/10/18 12:00 12/10/18 12:00 12/10/18 12:00 12/10/18 12:00 Laboratory Results - last 24 hr 12/09/18 06:39: POC Glucose 188 H 12/09/18 16:57: POC Glucose 111 H 12/09/18 21:40: POC Glucose 147 H 12/10/18 05:45: WBC 9.1 D, RBC 4.53 L, Hgb 12.5 L, Hct 39.9 L, MCV 88.0, MCH 27.6, MCHC 31.4 L, RDW 16.9, Plt Count 179, MPV 10.8 H, Neut % (Auto) 79.8, Lymph % (Auto) 13.3, [place] % (Auto) 6.0, Eos % (Auto) 0.7, Baso % (Auto) 0.1, Neut # (Auto) 7.3, Lymph # (Auto) 1.2, [place] # (Auto) 0.6, Eos # (Auto) 0.1, Baso # (Auto) 0.0 12/10/18 05:45: Sodium 144, Potassium 3.1 L, Chloride 109 H, Carbon Dioxide 26, Anion Gap 12.1, BUN 30 H, Creatinine 1.32 H, Estimated Creat Clear 47, Estimated GFR 53 L, Est GFR ( Amer) 64, Glucose 107 H D, Calcium 8.2 L 12/10/18 06:17: POC Glucose 106 12/10/18 11:44: POC Glucose 103 Laboratory Tests 12/10/18 05:45 Sodium 144 Potassium 3.1 L Chloride 109 H BUN 30 H Creatinine 1.32 H I & O for Last 24 hours: Intake & Output 12/08/18 12/09/18 12/10/1812/11/19 11:59 11:59 11:59 11:59 Intake Total 676 / 676 1777 / 1777 3550 / 3550 480 / 480 Output Total 1250 / 1250 1000 / 1000 2175 / 2175 Balance -574 / -574 777 / 777 1375 / 1375 480 / 480 Weight 162 lb 11.218 oz 165 lb 5.547 oz 156 lb 8.451 oz - Constitutional no acute distress - *Routine HEENT Exam Head: Present: normocephalic (His color is better.) ENT: Present: mucous membranes moist - *Routine Respiratory Exam Present: CTA bilaterally - *Routine Cardiovascular Exam Present: irregular rhythm - *Routine Abdominal Exam Present: soft. Absent: tenderness - *Routine Extremities Exam Absent: edema Assessment and Plan (1) Elevated troponin Current visit: Yes Status: Acute Category: Medical Code(s): R74.8 - Abnormal levels of other serum enzymes (2) Cardiomyopathy Current visit: Yes Status: Acute Category: Medical Code(s): I42.9 - C ardiomyopathy, unspecified (3) Abnormal EKG Current visit: Yes Status: Acute Category: Medical Code(s): R94.31 - Abnormal electrocardiogram [ECG] [EKG] (4) Leg weakness Current visit: Yes Status: Acute Category: Medical Code(s): R29.898 - Other symptoms and signs involving the musculoskeletal system (5) Coronary artery disease Current visit: Yes Status: Acute Category: Medical Code(s): I25.10 - Atherosclerotic heart disease of [place] coronary artery without angina pectoris (6) Hypertension Current visit: Yes Status: Chronic Category: Medical Code(s): I10 - Essential (primary) hypertension (7) Diabetes mellitus type 2 in nonobese Current visit: Yes Status: Chronic Category: Medical Code(s): E11.9 - Type 2 diabetes mellitus without complications (8) Atrial fibrillation Current visit: Yes Status: Chronic Category: Medical Code(s): I48.91 - Unspecified atrial fibrillation (9) Spinal stenosis of lumbar region Current visit: Yes Status: Chronic Category: Medical Code(s): M48.061 - Spinal stenosis, lumbar region without neurogenic claudication (10) Constipation by delayed colonic transit Current visit: Yes Status: Acute Category: Medical Code(s): K59.01 - Slow transit constipation - Assessment and plan all Dx Assessment and Plan for all problems:: Milk of magnesia and Senokot is ordered. His blood pressures been running high especially systolic. I ordered an additional dose of Entresto today. Additional potassium is ordered.
[2018-12-11 06:16] LABS: Anion Gap 14.8 mEq/L (5-15); Calcium 8.6 mg/dL (8.5-10.1)
--- NOTE | 2018-12-11 08:08 | Progress Note ---
Internal Medicine - PN: Subj *Date: 12/11/18 *Time: 08:08 Interval history: Patient awakened for assessment. He is supposed to go for an another cardiac cath this a.m. he denies having chest pain and shortness of breath. He has been n.p.o. for the cath. He denies difficulty in eating. He has been out of bed without problems. Exam Vital signs and Labs for Last 24 Hours: Temp Pulse Resp BP Pulse Ox 97.7 F 65 18 155/95 H 100 12/11/18 06:19 12/11/18 06:19 12/11/18 06:19 12/11/18 06:19 12/11/18 06:19 Laboratory Results - last 24 hr 12/10/18 11:44: POC Glucose 103 12/10/18 16:26: POC Glucose 200 H 12/10/18 20:15: POC Glucose 181 H 12/11/18 05:50: Sodium 142, Potassium 3.8 D, Chloride 108 H, Carbon Dioxide 23, Anion Gap 14.8, BUN 29 H, Creatinine 1.23, Estimated Creat Clear 51, Estimated GFR 57 L, Est GFR ( Amer) 69, Glucose 144 H, Calcium 8.6 12/11/18 06:20: POC Glucose 121 H I & O for Last 24 hours: Intake & Output 12/08/18 12/09/18 12/10/18 12/11/18 11:59 11:59 11:59 11:59 Intake Total 676 / 676 1777 / 1777 3550 / 3550 3497 / 3497 Output Total 1250 / 1250 1000 / 1000 2175 / 2175 300 / 300 Balance -574 / -574 777 / 777 1375 / 1375 3197 / 3197 Weight 162 lb 11.218 oz 165 lb 5.547 oz 156 lb 8.451 oz 157 lb 6.561 oz - Constitutional no acute distress Comments: Awakened for assessment - *Routine Respiratory Exam Present: CTA bilaterally (Anteriorly and posteriorly) - *Routine Cardiovascular Exam Present: irregular rhythm (Monitor showing atrial fib.) - *Routine Abdominal Exam Present: soft, normoactive bowel sounds. Absent: tenderness - *Routine Extremities Exam Absent: edema, calf tenderness - *Routine Neurological Exam Present: alert, oriented X3 Assessment and Plan (1) Elevated troponin Current visit: Yes Status: Acute Category: Medical Code(s): R74.8 - Abnormal levels of other serum enzymes (2) Cardiomyopathy Current visit: Yes Status: Acute Category: Medical Code(s): I42.9 - Cardiomyopathy, unspecified (3) Abnormal EKG Current visit: Yes Status: Acute Category: Medical Code(s): R94.31 - Abnormal electrocardiogram [ECG] [EKG] (4) Leg weakness Current visit: Yes Status: Acute Category: Medical Code(s): R29.898 - Other symptoms and signs involving the musculoskeletal system (5) Coronary artery disease Current visit: Yes Status: Acute Category: Medical Code(s): I25.10 - Atherosclerotic heart disease of [place] coronary artery without angina pectoris (6) Hypertension Current visit: Yes Status: Chronic Category: Medical Code(s): I10 - Essential (primary) hypertension (7) Diabetes mellitus type 2 in nonobese Current visit: Yes Status: Chronic Category: Medical Code(s): E11.9 - Type 2 diabetes mellitus without complications (8) Atrial fibrillation Current visit: Yes Status: Chronic Category: Medical Code(s): I48.91 - Unspecified atrial fibrillation (9) Spinal stenosis of lumbar region Current visit: Yes Status: Chronic Category: Medical Code(s): M48.061 - Spinal stenosis, lumbar region without neurogenic claudication (10) Constipation by delayed colonic transit Current visit: Yes Status: Acute Category: Medical Code(s): K59.01 - Slow transit constipation (11) Systolic congestive heart failure Current visit: Yes Status: Acute Category: Medical Code(s): I50.20 - Unspecified systolic (congestive) heart failure (12) Chronic renal failure Current visit: Yes Status: Acute Category: Medical Code(s): N18.9 - Chronic kidney disease, unspecified (13) Non-STEMI (non-ST elevated myocardial infarction) Current visit: Yes Status: Acute Category: Medical Code(s): I21.4 - Non-ST elevation (NSTEMI) myocardial infarction - Assessment and plan all Dx Assessment and Plan for all problems:: Patient is supposed to have additional cardiac cath this morning. Time has not been scheduled as yet. Patient did receive PRN dosage of hydralazine during the evening. Blood pressure is better although still remains elevated. Will follow cardiology recommendations following cath.
--- NOTE | 2018-12-11 09:21 | Progress Note ---
Subjective Date: 12/11/18 Time: 09:18 Principal diagnosis: weakness Interval history: 78 yo WM in bed in NAD. No chest pain over the weekend. Telemetry shows a. fib with CVR. BP remains elevated. He has received additional entresto yesterday. Exam Vital signs and Labs for Last 24 Hours: Temp Pulse Resp BP Pulse Ox 97.5 F L 72 18 157/94 H 100 12/11/18 08:00 12/11/18 08:09 12/11/18 08:09 12/11/18 08:00 12/11/18 08:09 Laboratory Results - last 24 hr 12/10/18 11:44: POC Glucose 103 12/10/18 16:26: POC Glucose 200 H 12/10/18 20:15: POC Glucose 181 H 12/11/18 05:50: Sodium 142, Potassium 3.8 D, Chloride 108 H, Carbon Dioxide 23, Anion Gap 14.8, BUN 29 H, Creatinine 1.23, Estimated Creat Clear 51, Estimated GFR 57 L, Est GFR ( Amer) 69, Glucose 144 H, Calcium 8.6 12/11/18 06:20: POC Glucose 121 H I & O for Last 24 hours: Intake & Output 12/08/18 12/09/18 12/10/18 12/11/18 11:59 11:59 11:59 11:59 Intake Total 676 / 676 1777 / 1777 3550 / 3550 3497 / 3497 Output Total 1250 / 1250 1000 / 1000 2175 / 2175 700 / 700 Balance -574 / -574 777 / 777 1375 / 1375 2797 / 2797 Weight 162 lb 11.218 oz 165 lb 5.547 oz 156 lb 8.451 oz 157 lb 6.561 oz - *Routine HEENT Exam Head: Present: normocephalic Eye: Present: EOMI, PERRL ENT: Present: mucous membranes moist - *Routine Respiratory Exam Present: CTA bilaterally. Absent: accessory muscle use, rales, rhonchi, wheezes - *Routine Cardiovascular Exam Present: RRR. Absent: murmur, gallop, rubs - *Routine Neurological Exam Present: alert, oriented X3, moving all extremities Progress Note: A&P (1) Elevated troponin Status: Acute Current Visit: Yes (2) Cardiomyopathy Status: Acute Current Visit: Yes (3) Abnormal EKG Status: Acute Current Visit: Yes (4) Leg weakness Status: Acute Current Visit: Yes (5) Coronary artery disease Status: Acute Current Visit: Yes (6) Hypertension Status: Chronic Current Visit: Yes (7) Diabetes mellitus type 2 in nonobese Status: Chronic Current Visit: Yes (8) Atrial fibrillation Status: Chronic Current Visit: Yes (9) Spinal stenosis of lumbar region Status: Chronic Current Visit: Yes (10) Constipation by delayed colonic transit Status: Acute Current Visit: Yes (11) Systolic congestive heart failure Status: Acute Current Visit: Yes (12) Chronic renal failure Status: Acute Current Visit: Yes (13) Non-STEMI (non-ST elevated myocardial infarction) Status: Acute Current Visit: Yes Assessment and Plan for All Diagnoses:: 1. LHC today to address remaining branch vessel disease of [place], diagonal and PDA. On DAPT and statin. 2. Will order renal duplex to assess for YANELI due to continued elevated BP. May be done as outpatient. 3. Xarelto started for chronic a. fib 4. Further recommendations to follow.
--- NOTE | 2018-12-11 18:07 | Cardiology Report ---
PROCEDURE: 2-D M-mode and color Doppler study INDICATIONS FOR THE TEST: Chest pain COPD Heart Murmur Tobacco SmokingEX Palpitations Fatigue Syncope Edema Hypertension+Diabetes Mellitus+ Rheumatic Fever SOB JARRETT Obesity Hyperlipidemia Family History HD Additional History Recheck EF post cath's PATIENT INFORMATION HEIGHT: 69 WEIGHT: 157 GENDER: Male B/P: 138/87 2-D/M-MODE INTERPRETATION: 2-D MEASUREMENTS OBSERVED VALUES IN CMS Right Ventricular Dimension (RVDd) 2.8 Interventricular Septum (Thickness)(IVsd) 1.5 Left Ventricular Internal Dimensions(LVIDd) 4.6 Left Ventricular Posterior Wall (Thickness)(LVPWd) 1.2 Aortic Root Aortic Cusp Separation Left Atrial Dimensions (LAD) 2D 1. Left atrium is mildly enlarged, left ventricle is normal size, mild concentric left ventricular hypertrophy, severely is left ventricular systolic function, visually estimated ejection fraction 30%, left ventricle is globally hypokinetic. 2. The right atrium and right ventricle are normal size and contractility. 3. The aortic valve is minimally thickened and fibrosed. 4. The mitral and tricuspid valvular grossly normal. 5. The pulmonic valve is poorly visualized. 6. No significant pericardial effusion noted. DOPPLER INTERROGATION: Limited Doppler evaluation is presence of mild mitral and tricuspid regurgitation. CONCLUSION: 1. Mildly enlarged left atrium, normal left ventricular size, mild concentric left ventricular hypertrophy, severely reduced left ventricular systolic function, visually estimated to 30% left ventricle is globally hypokinetic. 2. No significant pericardial effusion noted.
--- NOTE | 2018-12-11 19:13 | Progress Note ---
Internal Medicine - PN: Subj *Date: 12/11/18 *Time: 19:11 Interval history: He received 3 additional stents today: PROCEDURES: 1. Drug-eluting stent deployment to the first obtuse marginal artery off the circumflex artery 2. Drug-eluting stent deployment to the third diagonal artery off the LAD 3. Drug-eluting stent deployment to the ostial proximal mid large posterior descending artery off the dominant right coronary He is resting comfortably this evening. He remains in atrial fibrillation. Blood pressure is good. Dose of Entresto has been increased. Exam Vital signs and Labs for Last 24 Hours: Temp Pulse Resp BP Pulse Ox 97.5 F L 84 18 109/74 L 99 12/11/18 11:45 12/11/18 18:29 12/11/18 18:29 12/11/18 18:29 12/11/18 18:29 Laboratory Results - last 24 hr 12/10/18 20:15: POC Glucose 181 H 12/11/18 05:50: Sodium 142, Potassium 3.8 D, Chloride 108 H, Carbon Dioxide 23, Anion Gap 14.8, BUN 29 H, Creatinine 1.23, Estimated Creat Clear 51, Estimated GFR 57 L, Est GFR ( Amer) 69, Glucose 144 H, Calcium 8.6 12/11/18 06:20: POC Glucose 121 H 12/11/18 10:39: Activated Clotting Time > 400 H* 12/11/18 16:03: POC Glucose 248 H I & O for Last 24 hours: Intake & Output 12/09/18 12/10/18 12/11/18 12/12/18 11:59 11:59 11:59 11:59 Intake Total 1777 / 1777 3550 / 3550 3497 / 3497 1571 / 1571 Output Total 1000 / 1000 2175 / 2175 1200 / 1200 650 / 650 Balance 777 / 777 1375 / 1375 2297 / 2297 921 / 921 Weight 165 lb 5.547 oz 156 lb 8.451 oz 157 lb 6.561 oz Microbiology Reports for the Last 24 Hours: Microbiology 12/06/18 18:35 Blood Blood Culture - Final NO GROWTH AFTER 5 DAYS 12/06/18 18:35 Blood Blood Culture - Final NO GROWTH AFTER 5 DAYS - Constitutional no acute distress - *Routine Respiratory Exam Absent: respiratory distress - *Routine Cardiovascular Exam Present: irregular rhythm - *Routine Extremities Exam Absent: edema Assessment and Plan (1) Elevated troponin Current visit: Yes Status: Acute Category: Medical Code(s): R74.8 - Abnormal levels of other serum enzymes (2) Cardiomyopathy Current visit: Yes Status: Acute Category: Medical Code(s): I42.9 - Cardiomyopathy, unspecified (3) Abnormal EKG Current visit: Yes Status: Acute Category: Medical Code(s): R94.31 - Abnormal electrocardiogram [ECG] [EKG] (4) Leg weakness Current visit: Yes Status: Acute Category: Medical Code(s): R29.898 - Other symptoms and signs involving the musculoskeletal system (5) Coronary artery disease Current visit: Yes Status: Acute Category: Medical Code(s): I25.10 - Atherosclerotic heart disease of [place] coronary artery without angina pectoris (6) Hypertension Current visit: Yes Status: Chronic Category: Medical Code(s): I10 - Essential (primary) hypertension (7) Diabetes mellitus type 2 in nonobese Current visit: Yes Status: Chronic Category: Medical Code(s): E11.9 - Type 2 diabetes mellitus without complications (8) Atrial fibrillation Current visit: Yes Status: Chronic Category: Medical Code(s): I48.91 - Unspecified atrial fibrillation (9) Spinal stenosis of lumbar region Current visit: Yes Status: Chronic Category: Medical Code(s): M48.061 - Spinal stenosis, lumbar region without neurogenic claudication (10) Constipation by delayed colonic transit Current visit: Yes Status: Acute Category: Medical Code(s): K59.01 - Slow transit constipation (11) Systolic congestive heart failure Current visit: Yes Status: Acute Category: Medical Code(s): I50.20 - Unspecified systolic (congestive) heart failure (12) Chronic renal failure Current visit: Yes Status: Acute Category: Medical Code(s): N18.9 - Chronic kidney disease, unspecified (13) Non-STEMI (non-ST elevated myocardial infarction) Current visit: Yes Status: Acute Category: Medical Code(s): I21.4 - Non-ST elevation (NSTEMI) myocardial infarction - Assessment and plan all Dx Assessment and Plan for all problems:: He seems stable. Possible discharge tomorrow depending on his mobility and strength.
[2018-12-12 05:57] LABS: Eosinophils % 0.1 % (0.1-12.0); Hematocrit 35.8 % (42.0-52.0); Hemoglobin 11.6 g/dL (14.1-18.0); Lymphocytes # 0.5 K/mm3 (0.7-4.5); Lymphocytes % 5.4 % (10-50); Mean Corpuscular HGB Conc 32.2 g/dL (31.8-35.4); Mean Corpuscular Volume 88.2 fl (80-94); Mean Platelet Volume 11.5 fl (7.4-10.4); Monocytes # 0.3 K/mm3 (0.1-1.0); Monocytes % 3.3 % (1.7-9.3); Neutrophils # 9.1 K/mm3 (1.8-7.8); Neutrophils % 91.2 % (37.0-80.0); Platelet Count 181 K/mm3 (142-424); Red Blood Count 4.06 M/mm3 (4.60-6.20); Red Cell Distribution Width 16.7 % (11.5-17.5); White Blood Count 9.9 K/mm3 (4.8-10.8)
[2018-12-12 06:03] LABS: Anion Gap 13.5 mEq/L (5-15)
--- NOTE | 2018-12-12 08:46 | Progress Note ---
Subjective Date: 12/12/18 Time: 08:42 Principal diagnosis: weakness Interval history: 78 yo WM in bed in NAD. Feels better without chest pressure. Wants to go home. Telemetry shows A. fib with CVR. Limited echo yesterday shows LVEF of 30% which is consistent with [facility] results. Pt still does not want the lifevest. Exam Vital signs and Labs for Last 24 Hours: Temp Pulse Resp BP Pulse Ox 97.8 F 60 17 135/85 100 12/12/18 07:44 12/12/18 08:00 12/12/18 07:44 12/12/18 07:44 12/12/18 07:44 Laboratory Results - last 24 hr 12/11/18 10:39: Activated Clotting Time > 400 H* 12/11/18 16:03: POC Glucose 248 H 12/11/18 20:27: POC Glucose 400 H* 12/11/18 21:38: POC Glucose 392 H* 12/12/18 02:03: POC Glucose 216 H 12/12/18 05:35: WBC 9.9, RBC 4.06 L, Hgb 11.6 L, Hct 35.8 L, MCV 88.2, MCH 28.4, MCHC 32.2, RDW 16.7, Plt Count 181, MPV 11.5 H, Neut % (Auto) 91.2 H, Lymph % (Auto) 5.4 L, [place] % (Auto) 3.3, Eos % (Auto) 0.1, Baso % (Auto) 0.0 L, Neut # (Auto) 9.1 H, Lymph # (Auto) 0.5 L, [place] # (Auto) 0.3, Eos # (Auto) 0.0, Baso # (Auto) 0.0 12/12/18 05:35: Sodium 141, Potassium 4.5, Chloride 110 H, Carbon Dioxide 22, Anion Gap 13.5, BUN 37 H D, Creatinine 1.62 H D, Estimated Creat Clear 40, Estimated GFR 42 L, Est GFR ( Amer) 50 L D, Glucose 203 H D, Calcium 8.0 L 12/12/18 06:05: POC Glucose 181 H I & O for Last 24 hours: Intake & Output 12/09/18 12/10/18 12/11/18 12/12/18 11:59 11:59 11:59 11:59 Intake Total 1777 / 1777 3550 / 3550 3497 / 3497 3101 / 3101 Output Total 1000 / 1000 2175 / 2175 1200 / 1200 1000 / 1000 Balance 777 / 777 1375 / 1375 2297 / 2297 2101 / 2101 Weight 165 lb 5.547 oz 156 lb 8.451 oz 157 lb 6.561 oz 163 lb 5.8 oz Microbiology Reports for the Last 24 Hours: Microbiology 12/06/18 18:35 Blood Blood Culture - Final NO GROWTH AFTER 5 DAYS 12/06/18 18:35 Blood Blood Culture - Final NO GROWTH AFTER 5 DAYS - *Routine HEENT Exam Head: Present: normocephalic Eye: Present: EOMI, PERRL ENT: Present: mucous membranes moist - *Routine Respiratory Exam Present: CTA bilaterally. Absent: accessory muscle use, rales, rhonchi, wheezes - *Routine Cardiovascular Exam Present: irregularly irregular. Absent: murmur, gallop, rubs - *Routine Neurological Exam Present: alert, oriented X3, moving all extremities Progress Note: A&P (1) Elevated troponin Status: Acute Current Visit: Yes (2) Cardiomyopathy Status: Acute Current Visit: Yes (3) Abnormal EKG Status: Acute Current Visit: Yes (4) Leg weakness Status: Acute Current Visit: Yes (5) Coronary artery disease Status: Acute Current Visit: Yes (6) Hypertension Status: Chronic Current Visit: Yes (7) Diabetes mellitus type 2 in nonobese Status: Chronic Current Visit: Yes (8) Atrial fibrillation Status: Chronic Current Visit: Yes (9) Spinal stenosis of lumbar region Status: Chronic Current Visit: Yes (10) Constipation by delayed colonic transit Status: Acute Current Visit: Yes (11) Systolic congestive heart failure Status: Acute Current Visit: Yes (12) Chronic renal failure Status: Acute Current Visit: Yes (13) Non-STEMI (non-ST elevated myocardial infarction) Status: Acute Current Visit: Yes Assessment and Plan for All Diagnoses:: 1. continue ASA 81 mg daily and Brilinta 90 mg BID for HELENA for 30 days, then stop ASA. 2. Xarelto 15 mg daily for A. fib. 3. Entresto 49/51 mg BID and coreg 3.125 mg BID for cardiomyopathy along with lasix 20 mg and aldactone 25 gm daily. 4. Statin for hyperlipidemia and CAD. 5. Reassess LVEF in 3 months to decide if AICD needed. 6. Follow up in one week.
--- NOTE | 2018-12-12 09:11 | Progress Note ---
Internal Medicine - PN: Subj *Date: 12/12/18 *Time: 09:07 Interval history: The patient is stable after his catheterization and stenting yesterday. He says his chest feels good without pressure. The ejection fraction was still at 30% on catheterization yesterday. He does not want a LifeVest. I will discharge him today. Exam Vital signs and Labs for Last 24 Hours: Temp Pulse Resp BP Pulse Ox 97.8 F 60 17 135/85 100 12/12/18 07:44 12/12/18 08:00 12/12/18 07:44 12/12/18 07:44 12/12/18 07:44 Laboratory Results - last 24 hr 12/11/18 10:39: Activated Clotting Time > 400 H* 12/11/18 16:03: POC Glucose 248 H 12/11/18 20:27: POC Glucose 400 H* 12/11/18 21:38: POC Glucose 392 H* 12/12/18 02:03: POC Glucose 216 H 12/12/18 05:35: WBC 9.9, RBC 4.06 L, Hgb 11.6 L, Hct 35.8 L, MCV 88.2, MCH 28.4, MCHC 32.2, RDW 16.7, Plt Count 181, MPV 11.5 H, Neut % (Auto) 91.2 H, Lymph % (Auto) 5.4 L, [place] % (Auto) 3.3, Eos % (Auto) 0.1, Baso % (Auto) 0.0 L, Neut # (Auto) 9.1 H, Lymph # (Auto) 0.5 L, [place] # (Auto) 0.3, Eos # (Auto) 0.0, Baso # (Auto) 0.0 12/12/18 05:35: Sodium 141, Potassium 4.5, Chloride 110 H, Carbon Dioxide 22, An ion Gap 13.5, BUN 37 H D, Creatinine 1.62 H D, Estimated Creat Clear 40, Estimated GFR 42 L, Est GFR ( Amer) 50 L D, Glucose 203 H D, Calcium 8.0 L 12/12/18 06:05: POC Glucose 181 H I & O for Last 24 hours: Intake & Output 08/03/19 08/04/19 08/05/19 08/06/19 11:59 11:59 11:59 11:59 Intake Total 1777 / 1777 3550 / 3550 3497 / 3497 3447 / 3447 Output Total 1000 / 1000 2175 / 2175 1200 / 1200 1000 / 1000 Balance 777 / 777 1375 / 1375 2297 / 2297 2447 / 2447 Weight 165 lb 5.547 oz 156 lb 8.451 oz 157 lb 6.561 oz 163 lb 5.8 oz Microbiology Reports for the Last 24 Hours: Microbiology 12/06/18 18:35 Blood Blood Culture - Final NO GROWTH AFTER 5 DAYS 12/06/18 18:35 Blood Blood Culture - Final NO GROWTH AFTER 5 DAYS - Constitutional no acute distress - *Routine Respiratory Exam Present: CTA bilaterally - *Routine Cardiovascular Exam Present: irregular rhythm - *Routine Abdominal Exam Present: soft. Absent: tenderness - *Routine Extremities Exam Absent: edema Assessment and Plan (1) Non-STEMI (non-ST elevated myocardial infarction) Current visit: Yes Status: Acute Category: Medical Code(s): I21.4 - Non-ST elevation (NSTEMI) myocardial infarction (2) Coronary artery disease Current visit: Yes Status: Acute Category: Medical Code(s): I25.10 - Atherosclerotic heart disease of [place] coronary artery without angina pectoris (3) Elevated troponin Current visit: Yes Status: Acute Category: Medical Code(s): R74.8 - Abnormal levels of other serum enzymes (4) Cardiomyopathy Current visit: Yes Status: Acute Category: Medical Code(s): I42.9 - Cardiomyopathy, unspecified (5) Abnormal EKG Current visit: Yes Status: Acute Category: Medical Code(s): R94.31 - Abnormal electrocardiogram [ECG] [EKG] (6) Leg weakness Current visit: Yes Status: Acute Category: Medical Code(s): R29.898 - Other symptoms and signs involving the musculoskeletal system (7) Hypertension Current visit: Yes Status: Chronic Category: Medical Code(s): I10 - Essential (primary) hypertension (8) Diabetes mellitus type 2 in nonobese Current visit: Yes Status: Chronic Category: Medical Code(s): E11.9 - Type 2 diabetes mellitus without complications (9) Atrial fibrillation Current visit: Yes Status: Chronic Category: Medical Code(s): I48.91 - Unspecified atrial fibrillation (10) Spinal stenosis of lumbar region Current visit: Yes Status: Chronic Category: Medical Code(s): M48.061 - Spinal stenosis, lumbar region without neurogenic claudication (11) Constipation by delayed colonic transit Current visit: Yes Status: Acute Category: Medical Code(s): K59.01 - Slow transit constipation (12) Systolic congestive heart failure Current visit: Yes Status: Acute Category: Medical Code(s): I50.20 - Unspecified systolic (congestive) heart failure (13) Chronic renal failure Current visit: Yes Status: Acute Category: Medical Code(s): N18.9 - Chronic kidney disease, unspecified - Assessment and plan all Dx Assessment and Plan for all problems:: Will discharge. See medication list. Per cardiology: 1. continue ASA 81 mg daily and Brilinta 90 mg BID for HELENA for 30 days, then stop ASA. 2. Xarelto 15 mg daily for A. fib. 3. Entresto 49/51 mg BID and coreg 3.125 mg BID for cardiomyopathy along with lasix 20 mg and aldactone 25 gm daily. 4. Statin for hyperlipidemia and CAD. 5. Reassess LVEF in 3 months to decide if AICD needed. 6. Follow up in one week. Dr. Brooks will also see the patient in 1 week.
--- NOTE | 2018-12-12 09:15 | Progress Note ---
Internal Medicine - PN: Subj *Date: 12/12/18 *Time: 07:30 Interval history: Pt is resting quietly in bed, arouses easily to voice. He denies any pain, CP, or SOB. He notes that he rested well overnight and is looking forward to going home. Exam Vital signs and Labs for Last 24 Hours: Temp Pulse Resp BP Pulse Ox 97.8 F 60 17 135/85 100 12/12/18 07:44 12/12/18 08:00 12/12/18 07:44 12/12/18 07:44 12/12/18 07:44 Laboratory Results - last 24 hr 12/11/18 10:39: Activated Clotting Time > 400 H* 12/11/18 16:03: POC Glucose 248 H 12/11/18 20:27: POC Glucose 400 H* 12/11/18 21:38: POC Glucose 392 H* 12/12/18 02:03: POC Glucose 216 H 12/12/18 05:35: WBC 9.9, RBC 4.06 L, Hgb 11.6 L, Hct 35.8 L, MCV 88.2, MCH 28.4, MCHC 32.2, RDW 16.7, Plt Count 181, MPV 11.5 H, Neut % (Auto) 91.2 H, Lymph % (Auto) 5.4 L, [place] % (Auto) 3.3, Eos % (Auto) 0.1, Baso % (Auto) 0.0 L, Neut # (Auto) 9.1 H, Lymph # (Auto) 0.5 L, [place] # (Auto) 0.3, Eos # (Auto) 0.0, Baso # (Auto) 0.0 12/12/18 05:35: Sodium 141, Potassium 4.5, Chloride 110 H, Carbon Dioxide 22, Anion Gap 13.5, BUN 37 H D, Creatinine 1.62 H D, Estimated Creat Clear 40, Estimated GFR 42 L, Est GFR ( Amer) 50 L D, Glucose 203 H D, Calcium 8.0 L 12/12/18 06:05: POC Glucose 181 H I & O for Last 24 hours: Intake & Output 12/09/18 12/10/18 12/11/18 12/12/18 11:59 11:59 11:59 11:59 Intake Total 1777 / 1777 3550 / 3550 3497 / 3497 3447 / 3447 Output Total 1000 / 1000 2175 / 2175 1200 / 1200 1000 / 1000 Balance 777 / 777 1375 / 1375 2297 / 2297 2447 / 2447 Weight 165 lb 5.547 oz 156 lb 8.451 oz 157 lb 6.561 oz 163 lb 5.8 oz Microbiology Reports for the Last 24 Hours: Microbiology 12/06/18 18:35 Blood Blood Culture - Final NO GROWTH AFTER 5 DAYS 12/06/18 18:35 Blood Blood Culture - Final NO GROWTH AFTER 5 DAYS - Constitutional no acute distress - *Routine Respiratory Exam Present: CTA bilaterally - *Routine Cardiovascular Exam Present: irregularly irregular - *Routine Abdominal Exam Present: soft, normoactive bowel sounds. Absent: tenderness, distended, rebound, guarding, firm, rigid - *Routine Extremities Exam Present: full ROM, pulses intact. Absent: edema, calf tenderness - *Routine Neurological Exam Present: alert, oriented X3, moving all extremities Assessment and Plan (1) Non-STEMI (non-ST elevated myocardial infarction) Current visit: Yes Status: Acute Category: Medical Code(s): I21.4 - Non-ST elevation (NSTEMI) myocardial infarction (2) Coronary artery disease Current visit: Yes Status: Acute Category: Medical Code(s): I25.10 - Atherosclerotic heart disease of [place] coronary artery without angina pectoris (3) Elevated troponin Current visit: Yes Status: Acute Category: Medical Code(s): R74.8 - Abnormal levels of other serum enzymes (4) Cardiomyopathy Current visit: Yes Status: Acute Category: Medical Code(s): I42.9 - Cardiomyopathy, unspecified (5) Abnormal EKG Current visit: Yes Status: Acute Category: Medical Code(s): R94.31 - Abnormal electrocardiogram [ECG] [EKG] (6) Leg weakness Current visit: Yes Status: Acute Category: Medical Code(s): R29.898 - Other symptoms and signs involving the musculoskeletal system (7) Hypertension Current visit: Yes Status: Chronic Category: Medical Code(s): I10 - Essential (primary) hypertension (8) Diabetes mellitus type 2 in nonobese Current visit: Yes Status: Chronic Category: Medical Code(s): E11.9 - Type 2 diabetes mellitus without complications (9) Atrial fibrillation Current visit: Yes Status: Chronic Category: Medical Code(s): I48.91 - Unspecified atrial fibrillation (10) Spinal stenosis of lumbar region Current visit: Yes Status: Chronic Category: Medical Code(s): M48.061 - Spinal stenosis, lumbar region without neurogenic claudication (11) Constipation by delayed colonic transit Current visit: Yes Status: Acute Category: Medical Code(s): K59.01 - Slow transit constipation (12) Systolic congestive heart failure Current visit: Yes Status: Acute Category: Medical Code(s): I50.20 - Unspecified systolic (congestive) heart failure (13) Chronic renal failure Current visit: Yes Status: Acute Category: Medical Code(s): N18.9 - Chronic kidney disease, unspecified - Assessment and plan all Dx Assessment and Plan for all problems:: Cardiology note seen and appreciated. Pt scheduled for renal artery scan this morning. Further per Dr. Brooks.
[2018-12-12 09:20] LABS: Lymphocytes % 4 % (10-50); Monocytes % 2 % (2-9); Neutrophils % 94 % (42-76); Total Cells Counted 100
[2018-12-12 09:23] LABS: RBC Morphology Normal
--- NOTE | 2018-12-12 22:07 | Discharge Summary ---
General - General Admission date:: 12/06/18 Discharge date: 12/12/18 HPI HPI: Mr. Field is a 78-year-old white male with history of hypertension and type 2 diabetes mellitus who presented to the emergency department for evaluation of recurrent weakness. Patient denies chest pain, pressure or tightness and relates 3 episodes of leg weakness to the point that he will fall to the ground without loss of consciousness. He states he is able to catch himself and within a couple of minutes is able to stand back up with no problems. 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 Work-up in the ER revealed an elevated troponin and abnormal EKG showing atrial fibrillation with voltage criteria for LVH, inferior infarct and poor R wave progression anteriorly with ST segment abnormalities laterally suggestive of ischemia. This is unchanged from EKG from 2017. Patient's blood pressure was markedly elevated on admission which has improved with additional antihypertensive medication in the form of Norvasc and metoprolol. (The above as per [facility]) Hospital Course Hospital Course: The patient's head CT showed nothing acute. His chest x-ray showed CHF with interstitial edema. He was seen in consultation by cardiology who felt he would need an echo and a heart cath. An FATUMA and acetylcholinesterase inhibitor antibodies were ordered due to patient's leg weakness. The patient's echo showed an ejection fraction of 40 to 45% with biatrial enlargement and concentric left ventricular hypertrophy. The left ventricle was globally hypokinetic. There was also moderate pulmonary hypertension and the inferior vena cava was mildly dilated. The patient's ABIs were within normal limits.The patient's acetylcholine acetylcholinesterase receptor binding antibody was negative. His renal function was elevated as with his troponin I and C-reactive protein. The patient's telemetry showed atrial fibrillation with intermittent bradycardia down into the 40 bpm range. Cardiology felt he would need a heart cath. Dr. Brooks felt he would need an EMG nerve conduction study on his lower extremities to be arranged on an outpatient basis and he agreed with the heart cath. The patient had some constipation and was given milk of magnesia and Senokot. His blood pressure began running high and Entresto was ordered. Potassium was ordered for hypokalemia. The patient had a heart cath on 12/08/2018. He had a stent placed in the LAD successfully. He had severe left ventricular dilatation with a severely reduced ejection fraction. He had severe stenosis in the large third diagonal artery, the large first obtuse marginal artery, and the large posterior descending artery. The patient was started on Brilinta and aspirin and Dr. Swann felt a renal duplex should be ordered as he suspected the patient had renal artery stenosis. He felt his main culprit was the proximal LAD therefore this was stented first. He felt the other vessels needed to be stented, but he did not want to perform this procedure with his severely reduced ejection fraction. He was hoping the proximal LAD stent would improve his ejection fraction as well as gentle hydration and he wanted to do a repeat cath in a few days to stent the diagonal artery, obtuse marginal artery, and possibly the posterior descending artery. He felt the patient should be continued on Entresto and should also be started on Xarelto. He also recommended a LifeVest for the patient, however the patient was reluctant to wear one. The patient had a repeat cath on 12/11/2018. The large obtuse marginal artery, the large third diagonal artery, and the large posterior descending artery off the dominant right coronary artery were all stented. Dr. Swann wanted the patient to continue dual platelet antiplatelet therapy for 1 month and then drop the aspirin. He also wanted him to continue Xarelto for his atrial fib. He still felt a life that should be placed but the patient refused. The patient's blood pressure improved with an additional dose of Entresto but remained elevated thereafter. A renal duplex was ordered to assess for YANELI due to continued elevated blood pressure. It was normal. The patient had an echo on 12/11/2018 showing an EF of 30%. The patient was adamant that he did not want a LifeVest placed. Cardiology felt he could be discharged on aspirin 81 mg daily, Brilinta 90 mg twice daily, Xarelto 15 mg daily, and Entresto 49/51 mg twice daily along with Coreg 3.125 mg twice daily for cardiomyopathy. They also wanted the patient on 20 mg of Lasix daily as well as Aldactone 25 mg daily. They will follow-up with the patient in the office and reassess his LVEF in 3 months to decide if an AICD is needed. He was stable to be discharged home. Objective Vital signs: Temp Pulse Resp BP Pulse Ox 97.8 F 60 17 135/85 100 12/12/18 07:44 12/12/18 08:00 12/12/18 07:44 12/12/18 07:44 12/12/18 07:44 Narrative: - Constitutional no acute distress - *Routine HEENT Exam Head: Present: normocephalic Eye: Present: EOMI, PERRL ENT: Present: mucous membranes moist - *Routine Neck Exam Present: supple. Absent: lymphadenopathy - *Routine Respiratory Exam Present: CTA bilaterally - *Routine Cardiovascular Exam Present: irregularly irregular - *Routine Abdominal Exam Present: soft, normoactive bowel sounds. Absent: tenderness - *Routine Extremities Exam Absent: cyanosis, clubbing, edema - *Routine Skin Exam Present: warm. Absent: rash - *Routine Neurological Exam Present: alert, oriented X3 Results Labs on day of discharge: Labs from last 24 hours 12/12/18 12/12/18 12/12/18 06:05 05:35 05:35 WBC 9.9 RBC 4.06 L Hgb 11.6 L Hct 35.8 L MCV 88.2 MCH 28.4 MCHC 32.2 RDW 16.7 Plt Count 181 MPV 11.5 H Neut % (Auto) 91.2 H Lymph % (Auto) 5.4 L Wake % (Auto) 3.3 Eos % (Auto) 0.1 Baso % (Auto) 0.0 L Neut # (Auto) 9.1 H Lymph # (Auto) 0.5 L Wake # (Auto) 0.3 Eos # (Auto) 0.0 Baso # (Auto) 0.0 Total Counted 100 Neutrophils % (Manual) 94 H Lymphocytes % (Manual) 4 L Monocytes % (Manual) 2 Platelet Estimate Normal RBC Morphology Normal Sodium 141 Potassium 4.5 Chloride 110 H Carbon Dioxide 22 Anion Gap 13.5 BUN 37 H D Creatinine 1.62 H D Estimated Creat Clear 40 Estimated GFR 42 L Est GFR ( Amer) 50 L D Glucose 203 H D POC Glucose 181 H Calcium 8.0 L Acetylchol Rcpt Bind Ab 12/12/18 12/11/18 12/11/18 02:03 20:21 20:19 WBC RBC Hgb Hct MCV MCH MCHC RDW Plt Count MPV Neut % (Auto) Lymph % (Auto) Wake % (Auto) Eos % (Auto) Baso % (Auto) Neut # (Auto) Lymph # (Auto) Wake # (Auto) Eos # (Auto) Baso # (Auto) Total Counted Neutrophils % (Manual) Lymphocytes % (Manual) Monocytes % (Manual) Platelet Estimate RBC Morphology Sodium Potassium Chloride Carbon Dioxide Anion Gap BUN Creatinine Estimated Creat Clear Estimated GFR Est GFR ( Amer) Glucose POC Glucose 216 H 399 H* 393 H* Calcium Acetylchol Rcpt Bind Ab 12/10/18 05:45 WBC RBC Hgb Hct MCV MCH MCHC RDW Plt Count MPV Neut % (Auto) Lymph % (Auto) Wake % (Auto) Eos % (Auto) Baso % (Auto) Neut # (Auto) Lymph # (Auto) Wake # (Auto) Eos # (Auto) Baso # (Auto) Total Counted Neutrophils % (Manual) Lymphocytes % (Manual) Monocytes % (Manual) Platelet Estimate RBC Morphology Sodium Potassium Chloride Carbon Dioxide Anion Gap BUN Creatinine Estimated Creat Clear Estimated GFR Est GFR ( Amer) Glucose POC Glucose Calcium Acetylchol Rcpt Bind Ab <0.03 DS: Diagnosis - Discharge Diagnosis (1) Non-STEMI (non-ST elevated myocardial infarction) Status: Acute (2) Coronary artery disease Status: Acute (3) Elevated troponin Status: Acute (4) Cardiomyopathy Status: Acute (5) Abnormal EKG Status: Acute (6) Leg weakness Status: Acute (7) Hypertension Status: Chronic (8) Diabetes mellitus type 2 in nonobese Status: Chronic (9) Atrial fibrillation Status: Chronic (10) Spinal stenosis of lumbar region Status: Chronic (11) Constipation by delayed colonic transit Status: Acute (12) Systolic congestive heart failure Status: Acute (13) Chronic renal failure Status: Acute Discharge Plan - Patient Discharge Instructions ACTIVITY: Limited activity DIET: continue same diet Patient Instructions: Cardiac Troponin, Cardiac Catheterization, Electrocardiog aarti, Heart-Healthy Diet, DI for Heart Failure, DI for Cardiac Catheterization, DI for Coronary Stenting, DI for Cardiomyopathy, DI for Surgical Site Infection, Surgical Site Infection - Follow up Plan Follow up with: Lacy Brooks MD [Primary Care Provider] - 12/20/18 2:30 pm Geoff Swann MD [Staff Physician] - 12/19/18 9:40 am Disposition: Home, Self-Fdc Medications: Home Medications Medication Instructions Recorded Confirmed Type Lisinopril [Lisinopril 2.5mg Tab] 5 mg PO DAILY 10/11/18 12/06/18 History Aspirin [Aspirin 81mg EC Tab] 81 mg PO DAILY 12/07/18 12/07/18 History Ferrous Gluconate [Ferate] 240 mg PO TID 12/07/18 12/07/18 History Levothyroxine Sodium 50 mcg PO DAILY 12/07/18 12/07/18 History [Levothyroxine 50mcg (0.05mg) Tab] Linaclotide [Linzess] 72 mcg PO DAILY 12/07/18 12/07/18 History glyBURIDE [Diabeta 5mg tablet] 5 mg PO DAILY 12/07/18 12/07/18 History Ticagrelor [Brilinta 90mg Tablet] 90 mg PO BID 12/08/18 12/08/18 History Atorvastatin Calcium [Lipitor 40mg 40 mg PO HS #30 tab 12/12/18 Rx Tablet] Carvedilol [Coreg 3.125mg Tablet] 3.125 mg PO BID #60 tab 12/12/18 Rx Furosemide [Lasix 20mg tablet] 20 mg PO DAILY #30 tab 12/12/18 Rx Rivaroxaban [Xarelto 15mg tablet] 15 mg PO QPMWM #30 tab 12/12/18 Rx Sacubitril/Valsartan [Entresto 49 1 each PO BID #60 tab 12/12/18 Rx mg-51 mg Tablet] Sennosides/Docusate Sodium 2 tab PO DAILYP PRN tab 12/12/18 Rx [Senokot-S Tablet] Spironolactone [Aldactone 25mg Tab] 25 mg PO DAILY #30 tab 12/12/18 Rx Prescriptions/Medication Reconciliation: New Carvedilol [Coreg 3.125mg Tablet] 3.125 mg PO BID #60 tab Sacubitril/Valsartan [Entresto 49 mg-51 mg Tablet] 1 each PO BID #60 tab Furosemide [Lasix 20mg tablet] 20 mg PO DAILY #30 tab Atorvastatin Calcium [Lipitor 40mg Tablet] 40 mg PO HS #30 tab Rivaroxaban [Xarelto 15mg tablet] 15 mg PO QPMWM #30 tab Sennosides/Docusate Sodium [Senokot-S Tablet] 2 tab PO DAILYP PRN tab PRN Reason: Constipation Spironolactone [Aldactone 25mg Tab] 25 mg PO DAILY #30 tab Continued Lisinopril [Lisinopril 2.5mg Tab] 5 mg PO DAILY Levothyroxine Sodium [Levothyroxine 50mcg (0.05mg) Tab] 50 mcg PO DAILY Ferrous Gluconate [Ferate] 240 mg PO TID Aspirin [Aspirin 81mg EC Tab] 81 mg PO DAILY glyBURIDE [Diabeta 5mg tablet] 5 mg PO DAILY Linaclotide [Linzess] 72 mcg PO DAILY Ticagrelor [Brilinta 90mg Tablet] 90 mg PO BID - Problem Reconciliation Problems Reviewed?: Yes
== END 2018-12-12 11:09 | disposition home or self-care (01) ==
LOC: 2ND 18:22 → ER 18:22 → 2ND 21:05 → ICU 12-11 03:35
PROVIDERS: ADMIT Family Medicine; ATTEND Family Medicine
DX: E11.22 Type 2 diabetes mellitus with diabetic chronic kidney disease; I25.10 Atherosclerotic heart disease of native coronary artery without angina pectoris; R29.898 Other symptoms and signs involving the musculoskeletal system; N18.9 Chronic kidney disease, unspecified; M48.061 Spinal stenosis, lumbar region without neurogenic claudication; I42.9 Cardiomyopathy, unspecified; I48.91 Unspecified atrial fibrillation; I21.4 Non-ST elevation (NSTEMI) myocardial infarction; Z79.4 Long term (current) use of insulin; I50.20 Unspecified systolic (congestive) heart failure; K59.01 Slow transit constipation; I12.9 Hypertensive chronic kidney disease with stage 1 through stage 4 chronic kidney disease, or unspecified chronic kidney disease; Z72.0 Tobacco use
CPT/HCPCS: 36415; 70450; 71020; 71046; 72131; 80048; 80053; 81001; 82962; 83605; 84238; 84484; 85007; 85025; 85347; 85651; 86140; 87040; 93005; 93306; 93308; 93923; 93976; 96372; 96374; 96375; 99152; 99153; 99284; C1725; C1760; C1769; C1875; C1876; G0378; J1644; Q9967

== ENCOUNTER 2018-12-21 13:55 | Outpatient (RCR) | payer MEDICARE, SELFPAY | END 2019-04-02 13:27 | disposition home or self-care (01) | LOC: PT 13:55 | PROVIDERS: Visit Provider Internal Medicine | DX: Z95.5 Presence of coronary angioplasty implant and graft (principal) | CPT/HCPCS: 93798 ==

== ENCOUNTER → 2019-01-19 14:06 | Outpatient (CLI) | payer MEDICARE, SELFPAY ==
--- NOTE | 2019-01-19 14:08 | CA_ITS ---
APPROVED REPORT EXAM: Limited 2D Echocardiogram Manager Electrical: Lou León RVT Ht: 5 ft 9 in Wt: 157lbs BSA: 1.86 BP: 110/72 mmHg Indications: CM,DM,HTN,EX SMOKER,EF 30% ON 12/11/18 M-Mode Dimensions RVDd 2.70 cm (0.9-2.6) LA Diam 4.20 cm (1.9-4.0) LVDd 5.60 cm (3.5-5.7) Ao Diam 3.70 cm (2.0-3.7) LVDs 4.20 cm (3.5-5.7) AV Cusp 2.60 cm (1.5-2.6) IVSd 1.80 cm (0.6-1.1) PWd 1.30 cm (0.6-1.1) EF (Teich) 49.00% FS 25.00% EDV (Teich) 154.00 mL ESV (Teich) 78.60 mL Left Ventricle Left atrium is mildly enlarged, left ventricle is normal size, mild concentric left ventricular hypertrophy, visually estimated ejection fraction 40%, left ventricle is globally hypokinetic. Right Ventricle Right atrium and right ventricular normal size and contractility. Aortic Valve Aortic valve is minimally thickened and calcified leaflet continue to display good mobility. Mitral Valve Mitral valve leaflets are minimally thickened. Tricuspid Valve Tricuspid valve leaflets are minimally thickened. Pulmonic Valve Pulmonic valve is poorly visualized. Great Vessels Aortic root is normal size. Pericardium No significant pericardial effusion noted. Conclusion 1. Limited 2D and M-mode Doppler performed to assess left ventricular systolic function, there is no color flow mapping or spectral Doppler performed. 2. Mildly enlarged left atrium, normal left ventricular size, mild concentric left ventricular hypertrophy, moderately reduced left ventricular systolic function, visually estimated ejection fraction 40%, left ventricle is globally hypokinetic. 3. No significant pericardial effusion noted. Electronically signed by : Martin Petty, 01/21/2019 07:40:35
== END ==
PROVIDERS: PCP Family Medicine; Visit Provider Physician Assistant
DX: I25.10 Atherosclerotic heart disease of native coronary artery without angina pectoris (principal)
CPT/HCPCS: 93308

== ENCOUNTER → 2019-03-21 07:36 | Outpatient (CLI) | payer MEDICARE, SELFPAY ==
--- NOTE | 2019-03-21 07:39 | CA_ITS ---
APPROVED REPORT EXAM: Limited 2D Echocardiogram [place] Finisher: Jeniffer Orr RT(R) Ht: 5 ft 10 in Wt: 164lbs BSA: 1.92 BP: 108/81 mmHg Indications: Ischemic CM, CAD,CHF, AFIB, Renal disease, cardiac stents, HTN, Diabetes M-Mode Dimensions RVDd 2.07 cm (0.9-2.6) LVDd 6.19 cm (3.5-5.7) LVDs 5.00 cm (3.5-5.7) IVSd 1.29 cm (0.6-1.1) PWd 0.96 cm (0.6-1.1) EF (Teich) 38.90% FS 19.20% EDV (Teich) 193.30 mL ESV (Teich) 118.20 mL Left Ventricle Left atrium is mildly enlarged, left ventricle is normal size, mild concentric left ventricular hypertrophy, visually estimated ejection fraction 30%, there is marked hypokinesis involving the inferior, inferior apical and mid to distal septal wall. Right Ventricle Right atrium and right ventricular normal size and contractility. Aortic Valve Aortic valve is minimally thickened and fibrosed. There is no aortic stenosis Mitral Valve Mitral valve is grossly normal. Tricuspid Valve Tricuspid valve is grossly normal. Pulmonic Valve Pulmonic valve is poorly visualized. Great Vessels Aortic root is normal size. Pericardium No significant pericardial effusion noted. Conclusion 1. Limited 2D echocardiogram was performed 2. Normal left ventricular size, mild concentric left ventricular hypertrophy, visually estimated ejection fraction 30% with segmental wall motion abnormalities described above. 3. No significant pericardial effusion noted. Electronically signed by : Martin Petty, 03/22/2019 15:04:42
== END ==
PROVIDERS: PCP Family Medicine; Visit Provider Physician Assistant
DX: I25.5 Ischemic cardiomyopathy (principal)
CPT/HCPCS: 93308